=== PATIENT | female | born 1925 | race Two or more races ===

== ENCOUNTER 2017-01-31 16:35 | Inpatient (IN) | payer OTHER ==
[~2017-01-31] VITALS: Ht 160 cm; Wt 73.0 kg
[~2017-01-31 16:35] MED LIST: BENAZEPRIL HCL10 MG ORAL; CALCIUM500 M3 PO; DIPHENHYDRAMINE25 M1 ORAL; DITROPAN10 MG ORAL; GABAPENTIN300 MG/61 ORAL; LOPID600 MG ORAL; TRAMADOL HCL100 M2 ORAL; ZIAC1 EA ORAL
[2017-01-31 17:08] VITALS: BP 117/77
[2017-01-31 17:34] LABS: BASOPHILS % (AUTO) 0.8 % (0.0-2.0); EOSINOPHILS % (AUTO) 2.2 % (0.0-3.0); LYMPHOCYTES % (AUTO) 17.3 % (20.0-45.0); MEAN CORPUSCULAR HEMOGLOBIN 26.2 PG (27.0-31.0); MEAN CORPUSCULAR VOLUME 79 FL (80-99); MEAN PLATELET VOLUME 7.2 FL (6.5-10.1); MONOCYTES % (AUTO) 6.4 % (1.0-10.0); NEUTROPHILS % (AUTO) 73.3 % (45.0-75.0); PLATELET COUNT 228 K/UL (150-450); RED BLOOD COUNT 4.43 M/UL (4.20-5.40); RED CELL DISTRIBUTION WIDTH 14.2 % (11.6-14.8); WHITE BLOOD COUNT 16.8 K/UL (4.8-10.8)
[2017-01-31 17:48] LABS: ALANINE AMINOTRANSFERASE 30 U/L (3-33); ALBUMIN/GLOBULIN RATIO 0.8 (1.0-2.7); ANION GAP 19 (5-15); ASPARTATE AMINO TRANSFERASE 15 U/L (5-40); CALCIUM 8.5 mg/dL (8.6-10.2); CARBON DIOXIDE 22 mEQ/L (20-30); CHLORIDE 95 mEQ/L (98-107); HEMOLYSIS 13; POTASSIUM 3.3 mEQ/L (3.4-4.9); SODIUM 136 mEQ/L (135-145); TOTAL PROTEIN 7.8 g/dL (6.6-8.7)
[2017-01-31 17:57] LABS: TROPONIN I < 0.30 ng/mL (<=0.30)
[2017-01-31 18:16] LABS: CKMB 1.5 ng/mL (< 3.8)
--- NOTE | 2017-01-31 18:36 | Emergency Room Report ---
History of Present Illness General Chief Complaint: Upper Respiratory Illness Source: Patient Present Illness HPI 89-year-old female presents ED complaining of cough and congestion times one week. Notes cough with productive phlegm. Feels congested. Notes occasional shortness of breath. Denies chest pain. Denies fevers or chills. Denies sick contacts or recent travel. No other aggravating relieving factors. Denies any other associated symptoms Allergies: Coded Allergies: AZITHROMYCIN (Verified Adverse Reaction, 04/28/13) N#75. 2ND DAY OF ROCEPHIN AND AZITHROMYCIN (04/21/13). PATIENT DEVELOPED HIVES AFTER ROCEPHIN AND AZITHROMYCIN. CEFTRIAXONE SODIUM (Verified Adverse Reaction, 04/28/13) N#75: 2ND DAY OF ROCEPHIN AND AZITHROMYHCIN (04/21/13). DEVELOPED HIVES AFTER ROCEPHIN AND AZITHROMYCIN. Patient History Past Medical History: HTN Past Surgical History: none Pertinent Family History: none Social History: Denies: alcohol use, drug use, smoking Now: No Immunizations: UTD Reviewed Nursing Documentation: PMH: Agreed, PSxH: Agreed Nursing Documentation-PMH Hx Cardiac Problems: Yes Hx Hypertension: Yes Hx Cancer: No Hx Gastrointestinal Problems: No Hx Neurological Problems: No Review of Systems All Other Systems: negative except mentioned in HPI Physical Exam Vital Signs Date Time Temp Pulse Resp B/P Pulse Ox O2 Delivery O2 Flow Rate FiO2 01/31/17 16:38 99.1 91 20 117/77 93 Room Air Sp02 EP Interpretation: reviewed, normal General Appearance: no apparent distress, alert, GCS 15, non-toxic Head: normocephalic, atraumatic Eyes: bilateral eye PERRL, bilateral eye normal inspection ENT: hearing grossly normal, normal pharynx, no angioedema, normal voice Neck: full range of motion, supple/symm/no masses Respiratory: chest non-tender, normal breath sounds, crackles, speaking full sentences Cardiovascular #1: regular rate, rhythm, no edema Cardiovascular #2: 2+ carotid (R), 2+ carotid (L), 2+ radial (R), 2+ radial (L) , 2+ dorsalis pedis (R), 2+ dorsalis pedis (L) Gastrointestinal: normal bowel sounds, non tender, soft, non-distended, no guarding, no rebound Rectal: deferred Genitourinary: normal inspection, no CVA tenderness Musculoskeletal: back normal, gait/station normal, normal range of motion, non- tender Neurologic: alert, oriented x3, responsive, motor strength/tone normal, sensory intact, speech normal Psychiatric: judgement/insight normal, memory normal, mood/affect normal, no suicidal/homicidal ideation Reflexes: 3+ bicep (R), 3+ bicep (L), 3+ tricep (R), 3+ tricep (L), 3+ knee (R) , 3+ knee (L) Skin: normal color, no rash, warm/dry, well hydrated Lymphatic: no adenopathy Medical Decision Making Diagnostic Impression: Primary Impression: Pneumonia ER Course Hospital Course 89-year-old M presenting to ED with respiratory distress, cough and crackles Differential diagnoses include: Pneumonia, CHF exacerbation, pneumothorax, fluid overload Clinical course Patient placed on stretcher. On shell maker lockstitch. After initial history and physical, I ordered labs, IV fluids, EKG, chest x-ray, blood cultures, UA. Labs -leukocytosis noted, hemoglobin/hematocrit stable, electrolytes okay, lactate okay troponins negative CXR - atelectasis, effusion. ? infiltrate EKG - NSR, no acute ischemic changes interpreted by me given abx Case discussed with Dr. Boykin and he agreed to the patient to his service for further care and support I feel this is a highly complex case requiring extensive working including EKG/ Rhythm strip, Xray/CT/US, Blood/urine lab work, repeat exams while in ED, and administration of strong opiates/narcotics for pain control, admission to hospital or close patient follow up. Diagnosis - pneumonia Patient admitted to floor in serious condition Labs Test 01/31/17 17:27 White Blood Count 16.8 K/UL (4.8-10.8) Red Blood Count 4.43 M/UL (4.20-5.40) Hemoglobin 11.6 G/DL (12.0-16.0) Hematocrit 35.1 % (37.0-47.0) Mean Corpuscular Volume 79 FL (80-99) Mean Corpuscular Hemoglobin 26.2 PG (27.0-31.0) Mean Corpuscular Hemoglobin Concent 33.0 G/DL (32.0-36.0) Red Cell Distribution Width 14.2 % (11.6-14.8) Platelet Count 228 K/UL (150-450) Mean Platelet Volume 7.2 FL (6.5-10.1) Neutrophils (%) (Auto) 73.3 % (45.0-75.0) Lymphocytes (%) (Auto) 17.3 % (20.0-45.0) Monocytes (%) (Auto) 6.4 % (1.0-10.0) Eosinophils (%) (Auto) 2.2 % (0.0-3.0) Basophils (%) (Auto) 0.8 % (0.0-2.0) Sodium Level 136 mEQ/L (135-145) Potassium Level 3.3 mEQ/L (3.4-4.9) Chloride Level 95 mEQ/L (98-107) Carbon Dioxide Level 22 mEQ/L (20-30) Anion Gap 19 (5-15) Blood Urea Nitrogen 23 mg/dL (7-23) Creatinine 1.0 mg/dL (0.5-0.9) Estimat Glomerular Filtration Rate mL/min (>60) Glucose Level 115 mg/dL (74-106) Lactic Acid Level 1.00 mmol/L (0.66-2.22) Calcium Level 8.5 mg/dL (8.6-10.2) Total Bilirubin 0.3 mg/dL (0.0-1.2) Aspartate Amino Transf (AST/SGOT) 15 U/L (5-40) Alanine Aminotransferase (ALT/SGPT) 30 U/L (3-33) Alkaline Phosphatase 106 U/L (35-104) Total Creatine Kinase 87 U/L (26-140) Creatine Kinase MB 1.5 ng/mL (< 3.8) Creatine Kinase MB Relative Index 1.7 Troponin I < 0.30 ng/mL (<=0.30) Pro-B-Type Natriuretic Peptide 103 pg/mL (0-450) Total Protein 7.8 g/dL (6.6-8.7) Albumin 3.5 g/dL (3.5-5.2) Globulin 4.3 g/dL Albumin/Globulin Ratio 0.8 (1.0-2.7) EKG Diagnostic Results Rate: normal Rhythm: NSR ST Segments: no acute changes ASA given to the pt in ED: No Rhythm Strip Diag. Results EP Interpretation: yes Rhythm: NSR, no PVC's, no ectopy Chest X-Ray Diagnostic Results Chest X-Ray Ordered: Yes # of Views/Limited/Complete: 1 View Interpretation: no pneumothorax, no acute cardiopulmonary disease, other - atelectasis, effusion noted Indication: Other - cough Impression: Other - pneumonia Date Electronically Signed: Jan 31, 2017 Time Electronically Signed: 18:33 Interpreting ER Physician: Javad Butler MD Last Vital Signs Date Time Temp Pulse Resp B/P Pulse Ox O2 Delivery O2 Flow Rate FiO2 01/31/17 17:08 91 20 Room Air 01/31/17 17:08 99.1 117/77 93 Status: improved Disposition: ADMITTED INPATIENT Condition: Serious Referrals: NON PHYSICIAN (PCP) JAVAD BUTLER M.D. Jan 31, 2017 18:36
[2017-01-31 19:13] VITALS: BP 108/67
[2017-01-31] MEDS ORDERED: DuoNeb 0.5-3(2.5)mg/3ml neb HHN PRN (20:15)
[2017-01-31] MEDS ORDERED: Nitroglycerin Subl 0.4mg tab (Bottle Of 25) SL PRN (20:15)
[2017-01-31] MEDS ORDERED: Miralax 17gm pkt ORAL PRN (20:15)
[2017-01-31] MEDS ORDERED: Mylanta II UD 30ml ORAL PRN (20:15)
[2017-01-31] MEDS ORDERED: Promethazine/Codeine 5ml UD ORAL PRN (20:15)
[2017-01-31 20:47] LABS: APPEARANCE,URINE CLOUDY; KETONES,URINE NEGATIVE (NEGATIVE); LEUKOCYTE ESTERASE ,URINE 3+ (NEGATIVE); NITRITE,URINE POSITIVE (NEGATIVE); PH,URINE 6 (4.5-8.0); PROTEIN,URINE 2+ (NEGATIVE); UROBILINOGEN,URINE NORMAL MG/DL (0.0-1.0)
[2017-01-31 21:16] LABS: RBC,URINE 30-40 /HPF (0 - 2); WBC,URINE TNTC /HPF (0 - 2)
[2017-01-31 21:17] LABS: BACTERIA,URINE MANY /HPF; SQUAMOUS EPITHELIAL CELL,UR FEW /LPF (NONE/OCC)
[2017-01-31] MEDS ORDERED: Aztreonam Inj 1 GM in NS 55 ML IVPB ONE (23:00)
[2017-01-31] MEDS: Heparin 5000 units/ml inj SUBQ SCH (23:30)
[2017-02-01] MEDS ORDERED: Vancomycin 1250mg/D5W 275ml IVPB ONE ×2
[2017-02-01] MEDS ORDERED: Vancomycin 1gm inj IVPB ONE (00:19)
[2017-02-01 04:49] VITALS: BP 124/71
[2017-02-01] MEDS: Aztreonam 0.5gm/D5W 55ml IVPB SCH ×6 (06:28→21:35)
[2017-02-01 07:10] LABS: ANION GAP 16 (5-15); BASOPHILS % (AUTO) 0.7 % (0.0-2.0); CALCIUM 8.1 mg/dL (8.6-10.2); CARBON DIOXIDE 24 mEQ/L (20-30); CHLORIDE 97 mEQ/L (98-107); CREATININE 0.9 mg/dL (0.5-0.9); EOSINOPHILS % (AUTO) 2.3 % (0.0-3.0); HEMOLYSIS 0; LYMPHOCYTES % (AUTO) 20.7 % (20.0-45.0); MEAN CORPUSCULAR HEMOGLOBIN 26.2 PG (27.0-31.0); MEAN CORPUSCULAR HGB CONC 32.2 G/DL (32.0-36.0); MEAN CORPUSCULAR VOLUME 81 FL (80-99); MEAN PLATELET VOLUME 7.3 FL (6.5-10.1); MONOCYTES % (AUTO) 7.8 % (1.0-10.0); NEUTROPHILS % (AUTO) 68.4 % (45.0-75.0); PHOSPHORUS 3.5 mg/dL (2.5-4.8); PLATELET COUNT 212 K/UL (150-450); POTASSIUM 3.3 mEQ/L (3.4-4.9); RED BLOOD COUNT 3.92 M/UL (4.20-5.40); RED CELL DISTRIBUTION WIDTH 14.4 % (11.6-14.8); SODIUM 137 mEQ/L (135-145); WHITE BLOOD COUNT 13.3 K/UL (4.8-10.8)
[2017-02-01 08:15] VITALS: BP 111/69
--- NOTE | 2017-02-01 08:16 | Diagnostic Imaging Report ---
Indications: Right upper chest pain Technique: Portable AP chest Findings: Comparison: None Cardiac silhouette remains upper limits of normal in size. Pulmonary vasculature remains within normal limits. Inspiratory effort remains suboptimal. Mild crowding of bronchovascular markings in the lung bases persists. Lungs and pleura remain otherwise clear. Mild calcification and elongation of the aortic arch is unchanged. Bilateral glenohumeral joint space narrowing and marginal osteophyte formation have progressed. IMPRESSION: No evidence of acute disease, unchanged Progression of bilateral glenohumeral degenerative arthropathy Other stable chronic changes as described
[2017-02-01] MEDS: Heparin 5000 units/ml inj SUBQ SCH ×2 (08:47→21:20)
--- NOTE | 2017-02-01 10:21 | History and Physical ---
History of Present Illness General Date patient seen: Feb 01, 2017 Time patient seen: 09:00 Reason for Hospitalization: Upper Respiratory Illness Present Illness Allergies: Coded Allergies: AZITHROMYCIN (Verified Adverse Reaction, 04/28/13) N#[id number]. 2ND DAY OF ROCEPHIN AND AZITHROMYCIN (04/21/13). PATIENT DEVELOPED HIVES AFTER ROCEPHIN AND AZITHROMYCIN. CEFTRIAXONE SODIUM (Verified Adverse Reaction, 04/28/13) N#[id number]: 2ND DAY OF ROCEPHIN AND AZITHROMYHCIN (04/21/13). DEVELOPED HIVES AFTER ROCEPHIN AND AZITHROMYCIN. Medication History Scheduled Benazepril Hcl* (Benazepril Hcl*), 12.5 MG ORAL BID, (Reported) Calcium Carbonate (Calcium), 500 MG PO BID, (Reported) Gabapentin (Gabapentin), 300 MG ORAL BID, (Reported) Gemfibrozil* (Lopid*), 600 MG ORAL TWICE A DAY, (Reported) Oxybutynin Chloride (Oxybutynin Chloride), 10 MG ORAL DAILY, (Reported) Scheduled PRN Diphenhydramine Hcl* (Diphenhydramine Hcl*), 50 MG ORAL TID PRN for Itching, ( Reported) Tramadol Hcl (Tramadol Hcl), 50 MG ORAL BID PRN for For Pain, (Reported) Miscellaneous Medications Hctz/Bisoprolol (Ziac 5-6.25 mg Tablet), 1 EA ORAL, (Reported) Patient History Healthcare decision maker Resuscitation status Advanced Directive on File No Physical Exam Last 24 Hour Vital Signs Date Time Temp Pulse Resp B/P Pulse Ox O2 Delivery O2 Flow Rate FiO2 02/01/17 08:15 97.1 83 15 111/69 98 Room Air 02/01/17 04:49 97.7 64 16 124/71 95 Room Air 01/31/17 20:54 99.1 78 20 105/60 99 Room Air 01/31/17 19:13 79 20 108/67 99 Room Air 01/31/17 17:08 91 20 Room Air 01/31/17 17:08 99.1 20 117/77 93 Room Air 01/31/17 16:38 99.1 91 20 117/77 93 Room Air Intake and Output 01/31/17 02/01/17 19:00 07:00 Intake Total 500 ml 150 ml Balance 500 ml 150 ml Intake IV Total 500 ml 150 ml # Voids 3 Laboratory Tests Test 01/31/17 17:27 01/31/17 20:12 02/01/17 05:30 White Blood Count 16.8 K/UL (4.8-10.8) H 13.3 K/UL (4.8-10.8) H Red Blood Count 4.43 M/UL (4.20-5.40) 3.92 M/UL (4.20-5.40) L Hemoglobin 11.6 G/DL (12.0-16.0) L 10.2 G/DL (12.0-16.0) L Hematocrit 35.1 % (37.0-47.0) L 31.8 % (37.0-47.0) L Mean Corpuscular Volume 79 FL (80-99) L 81 FL (80-99) Mean Corpuscular Hemoglobin 26.2 PG (27.0-31.0) L 26.2 PG (27.0-31.0) L Mean Corpuscular Hemoglobin Concent 33.0 G/DL (32.0-36.0) 32.2 G/DL (32.0-36.0) Red Cell Distribution Width 14.2 % (11.6-14.8) 14.4 % (11.6-14.8) Platelet Count 228 K/UL (150-450) 212 K/UL (150-450) Mean Platelet Volume 7.2 FL (6.5-10.1) 7.3 FL (6.5-10.1) Neutrophils (%) (Auto) 73.3 % (45.0-75.0) 68.4 % (45.0-75.0) Lymphocytes (%) (Auto) 17.3 % (20.0-45.0) L 20.7 % (20.0-45.0) Monocytes (%) (Auto) 6.4 % (1.0-10.0) 7.8 % (1.0-10.0) Eosinophils (%) (Auto) 2.2 % (0.0-3.0) 2.3 % (0.0-3.0) Basophils (%) (Auto) 0.8 % (0.0-2.0) 0.7 % (0.0-2.0) Sodium Level 136 mEQ/L (135-145) 137 mEQ/L (135-145) Potassium Level 3.3 mEQ/L (3.4-4.9) L 3.3 mEQ/L (3.4-4.9) L Chloride Level 95 mEQ/L (98-107) L 97 mEQ/L (98-107) L Carbon Dioxide Level 22 mEQ/L (20-30) 24 mEQ/L (20-30) Anion Gap 19 (5-15) H 16 (5-15) H Blood Urea Nitrogen 23 mg/dL (7-23) 22 mg/dL (7-23) Creatinine 1.0 mg/dL (0.5-0.9) H 0.9 mg/dL (0.5-0.9) Estimat Glomerular Filtration Rate mL/min (>60) mL/min (>60) Glucose Level 115 mg/dL (74-106) H 93 mg/dL (74-106) Lactic Acid Level 1.00 mmol/L (0.66-2.22) Calcium Level 8.5 mg/dL (8.6-10.2) L 8.1 mg/dL (8.6-10.2) L Total Bilirubin 0.3 mg/dL (0.0-1.2) Aspartate Amino Transf (AST/SGOT) 15 U/L (5-40) Alanine Aminotransferase (ALT/SGPT) 30 U/L (3-33) Alkaline Phosphatase 106 U/L (35-104) H Total Creatine Kinase 87 U/L (26-140) Creatine Kinase MB 1.5 ng/mL (< 3.8) Creatine Kinase MB Relative Index 1.7 Troponin I < 0.30 ng/mL (<=0.30) Pro-B-Type Natriuretic Peptide 103 pg/mL (0-450) Total Protein 7.8 g/dL (6.6-8.7) Albumin 3.5 g/dL (3.5-5.2) 3.1 g/dL (3.5-5.2) L Globulin 4.3 g/dL Albumin/Globulin Ratio 0.8 (1.0-2.7) L Urine Color Pale yellow Urine Appearance Cloudy Urine pH 6 (4.5-8.0) Urine Specific [place] 1.015 (1.005-1.035) Urine Protein 2+ (NEGATIVE) H Urine Glucose (UA) Negative (NEGATIVE) Urine Ketones Negative (NEGATIVE) Urine Occult Blood 2+ (NEGATIVE) H Urine Nitrite Positive (NEGATIVE) H Urine Bilirubin Negative (NEGATIVE) Urine Urobilinogen Normal MG/DL (0.0-1.0) Urine Leukocyte Esterase 3+ (NEGATIVE) H Urine RBC 30-40 /HPF (0 - 2) H Urine WBC Tntc /HPF (0 - 2) H Urine Squamous Epithelial Cells Few /LPF (NONE/OCC) Urine Bacteria Many /HPF (NONE) H Urine Legionella Antigen Pending Phosphorus Level 3.5 mg/dL (2.5-4.8) Height (Feet): 5 Height (Inches): 3.00 Weight (Pounds): 161 Medications Current Medications Medications (Trade) Dose Ordered Sig/Jess Route PRN Reason Start Time Stop Time Status Last Admin Dose Admin Acetaminophen (Tylenol) 650 mg Q4H PRN ORAL fever 01/31/17 20:15 03/02/17 20:14 Al Hydroxide/Mg Hydroxide (Mylanta II) 30 ml Q6H PRN ORAL dyspepsia 01/31/17 20:15 03/02/17 20:14 Albuterol/ Ipratropium (DuoNeb 0.5-3(2.5)mg/3ml) 3 ml EVERY 4 HOURS PRN HHN Shortness of Breath 01/31/17 20:15 02/05/17 20:14 Aztreonam 0.5 gm/ Dextrose 55 ml @ 110 mls/hr Q8HR IVPB 02/01/17 06:00 02/08/17 05:59 02/01/17 06:28 Gabapentin (Neurontin) 300 mg Q12HR ORAL 01/31/17 23:00 03/02/17 22:59 02/01/17 08:45 Heparin Sodium (Porcine) (Heparin 5000 units/ml) 5,000 units EVERY 12 HOURS SUBQ 01/31/17 21:00 03/02/17 20:59 02/01/17 08:47 Nitroglycerin (Ntg) 0.4 mg Q5M PRN SL Prn Chest Pain 01/31/17 20:15 03/02/17 20:14 Ondansetron HCl (Zofran) 4 mg Q6H PRN IVP Nausea & Vomiting 01/31/17 20:15 03/02/17 20:14 Polyethylene Glycol (Miralax) 17 gm DAILYPRN PRN ORAL Constipation 01/31/17 20:15 03/02/17 20:14 Promethazine HCl/ Codeine (Phenergan with Codeine) 5 ml Q4H PRN ORAL For Cough 01/31/17 20:15 03/02/17 20:14 Temazepam (Restoril) 15 mg HSPRN PRN ORAL Insomnia 01/31/17 20:15 02/07/17 20:14 Vancomycin HCl 1 ea 1 ea DAILY PRN MISC Per rx protocol 01/31/17 20:15 03/02/17 20:14 Vancomycin HCl/ Dextrose (Vancomycin/D5W) 275 ml @ 183.708 mls/hr Q24H IVPB 02/02/17 00:00 02/07/17 00:00 Cely Paz NP ([place]) Feb 01, 2017 10:21
[2017-02-01 11:27] VITALS: BP 104/57
[2017-02-01 16:21] VITALS: BP 106/78
--- NOTE | 2017-02-01 16:46 | History & Physical ---
History and Physical History & Physicial Dictated for Int Med-Dr Boykin no. [id number]. MADHURI RANDLE Feb 01, 2017 16:46
--- NOTE | 2017-02-01 16:55 | Consultation ---
History of Present Illness General Date patient seen: Feb 01, 2017 Time patient seen: 09:00 Chief Complaint: Upper Respiratory Illness Referring physician: dr Boykin Reason for Consultation: trevor vences, possible PNA Present Illness HPI 89-year-old female with histroy of HTN presented to ED complaining of cough and congestion for one week. Noted productive cough with yellow color phlegm. No hemoptysis No wheezing [place] congested. Noted occasional shortness of breath. Denied chest pain. Denied fevers or chills. Denied sick contacts or recent travel. No history of asthma/COPD Non smoker CXR revealed atelectasis with probable infiltrate leukocytosis-16.8 lactic acid WNL, troponin negative ECG with NSR , no acute ischemic changes patient was given first dose of antibiotic in ED and admitted for further management Allergies: Coded Allergies: AZITHROMYCIN (Verified Adverse Reaction, 04/28/13) N#[id number]. 2ND DAY OF ROCEPHIN AND AZITHROMYCIN (04/21/13). PATIENT DEVELOPED HIVES AFTER ROCEPHIN AND AZITHROMYCIN. CEFTRIAXONE SODIUM (Verified Adverse Reaction, 04/28/13) N#[id number]: 2ND DAY OF ROCEPHIN AND AZITHROMYHCIN (04/21/13). DEVELOPED HIVES AFTER ROCEPHIN AND AZITHROMYCIN. Medication History Scheduled Benazepril Hcl* (Benazepril Hcl*), 12.5 MG ORAL BID, (Reported) Calcium Carbonate (Calcium), 500 MG PO BID, (Reported) Gabapentin (Gabapentin), 300 MG ORAL BID, (Reported) Gemfibrozil* (Lopid*), 600 MG ORAL TWICE A DAY, (Reported) Oxybutynin Chloride (Oxybutynin Chloride), 10 MG ORAL DAILY, (Reported) Scheduled PRN Diphenhydramine Hcl* (Diphenhydramine Hcl*), 50 MG ORAL TID PRN for Itching, ( Reported) Tramadol Hcl (Tramadol Hcl), 50 MG ORAL BID PRN for For Pain, (Reported) Miscellaneous Medications Hctz/Bisoprolol (Ziac 5-6.25 mg Tablet), 1 EA ORAL, (Reported) Patient History History Provided By: Patient Healthcare decision maker Resuscitation status Advanced Directive on File No Past Medical/Surgical History Past Medical/Surgical History: (1) Hypertension Review of Systems Constitutional: Reports: weakness Eye: Reports: no symptoms ENT: Reports: other - nasal congestion Respiratory: Reports: see HPI Cardiovascular: Reports: no symptoms, other - hx of hTN Gastrointestinal: Reports: constipation Genitourinary: Reports: frequency - at night Musculoskeletal: Reports: muscle stiffness Skin: Reports: dryness Psychiatric: Reports: no symptoms Neurological: Reports: no symptoms Endocrine: Reports: no symptoms Hematologic/Lymphatic: Reports: no symptoms Physical Exam General Appearance: no apparent distress, alert, other - A/A/O x 3 Nepalese speaking elderly female in NAD Lines, tubes and drains: peripheral HEENT: normocephalic, atraumatic, anicteric, mucous membranes moist, supple, no JVD Neck: non-tender, normal alignment, supple Respiratory/Chest: chest wall non-tender, no respiratory distress, no accessory muscle use, other - coarse breath sounds wuth scattered rhonchi Cardiovascular/Chest: normal peripheral pulses, normal rate, regular rhythm, no JVD Abdomen: normal bowel sounds, non tender, soft Extremities: non-tender, no calf tenderness, normal capillary refill Skin Exam: normal pigmentation, warm/dry Neurologic: no motor/sensory deficits, alert, responsive Musculoskeletal: atrophy - BLE Last 24 Hour Vital Signs Date Time Temp Pulse Resp B/P Pulse Ox O2 Delivery O2 Flow Rate FiO2 02/01/17 16:21 98.1 81 15 106/78 92 Room Air 02/01/17 11:27 98.1 65 15 104/57 96 Room Air 02/01/17 08:15 97.1 83 15 111/69 98 Room Air 02/01/17 04:49 97.7 64 16 124/71 95 Room Air 01/31/17 20:54 99.1 78 20 105/60 99 Room Air 01/31/17 19:13 79 20 108/67 99 Room Air 01/31/17 17:08 91 20 Room Air 01/31/17 17:08 99.1 20 117/77 93 Room Air Intake and Output 01/31/17 02/01/17 19:00 07:00 Intake Total 500 ml 150 ml Balance 500 ml 150 ml Intake IV Total 500 ml 150 ml # Voids 3 Laboratory Tests Test 01/31/17 17:27 01/31/17 20:12 02/01/17 05:30 White Blood Count 16.8 K/UL (4.8-10.8) H 13.3 K/UL (4.8-10.8) H Red Blood Count 4.43 M/UL (4.20-5.40) 3.92 M/UL (4.20-5.40) L Hemoglobin 11.6 G/DL (12.0-16.0) L 10.2 G/DL (12.0-16.0) L Hematocrit 35.1 % (37.0-47.0) L 31.8 % (37.0-47.0) L Mean Corpuscular Volume 79 FL (80-99) L 81 FL (80-99) Mean Corpuscular Hemoglobin 26.2 PG (27.0-31.0) L 26.2 PG (27.0-31.0) L Mean Corpuscular Hemoglobin Concent 33.0 G/DL (32.0-36.0) 32.2 G/DL (32.0-36.0) Red Cell Distribution Width 14.2 % (11.6-14.8) 14.4 % (11.6-14.8) Platelet Count 228 K/UL (150-450) 212 K/UL (150-450) Mean Platelet Volume 7.2 FL (6.5-10.1) 7.3 FL (6.5-10.1) Neutrophils (%) (Auto) 73.3 % (45.0-75.0) 68.4 % (45.0-75.0) Lymphocytes (%) (Auto) 17.3 % (20.0-45.0) L 20.7 % (20.0-45.0) Monocytes (%) (Auto) 6.4 % (1.0-10.0) 7.8 % (1.0-10.0) Eosinophils (%) (Auto) 2.2 % (0.0-3.0) 2.3 % (0.0-3.0) Basophils (%) (Auto) 0.8 % (0.0-2.0) 0.7 % (0.0-2.0) Sodium Level 136 mEQ/L (135-145) 137 mEQ/L (135-145) Potassium Level 3.3 mEQ/L (3.4-4.9) L 3.3 mEQ/L (3.4-4.9) L Chloride Level 95 mEQ/L (98-107) L 97 mEQ/L (98-107) L Carbon Dioxide Level 22 mEQ/L (20-30) 24 mEQ/L (20-30) Anion Gap 19 (5-15) H 16 (5-15) H Blood Urea Nitrogen 23 mg/dL (7-23) 22 mg/dL (7-23) Creatinine 1.0 mg/dL (0.5-0.9) H 0.9 mg/dL (0.5-0.9) Estimat Glomerular Filtration Rate mL/min (>60) mL/min (>60) Glucose Level 115 mg/dL (74-106) H 93 mg/dL (74-106) Lactic Acid Level 1.00 mmol/L (0.66-2.22) Calcium Level 8.5 mg/dL (8.6-10.2) L 8.1 mg/dL (8.6-10.2) L Total Bilirubin 0.3 mg/dL (0.0-1.2) Aspartate Amino Transf (AST/SGOT) 15 U/L (5-40) Alanine Aminotransferase (ALT/SGPT) 30 U/L (3-33) Alkaline Phosphatase 106 U/L (35-104) H Total Creatine Kinase 87 U/L (26-140) Creatine Kinase MB 1.5 ng/mL (< 3.8) Creatine Kinase MB Relative Index 1.7 Troponin I < 0.30 ng/mL (<=0.30) Pro-B-Type Natriuretic Peptide 103 pg/mL (0-450) Total Protein 7.8 g/dL (6.6-8.7) Albumin 3.5 g/dL (3.5-5.2) 3.1 g/dL (3.5-5.2) L Globulin 4.3 g/dL Albumin/Globulin Ratio 0.8 (1.0-2.7) L Urine Color Pale yellow Urine Appearance Cloudy Urine pH 6 (4.5-8.0) Urine Specific [place] 1.015 (1.005-1.035) Urine Protein 2+ (NEGATIVE) H Urine Glucose (UA) Negative (NEGATIVE) Urine Ketones Negative (NEGATIVE) Urine Occult Blood 2+ (NEGATIVE) H Urine Nitrite Positive (NEGATIVE) H Urine Bilirubin Negative (NEGATIVE) Urine Urobilinogen Normal MG/DL (0.0-1.0) Urine Leukocyte Esterase 3+ (NEGATIVE) H Urine RBC 30-40 /HPF (0 - 2) H Urine WBC Tntc /HPF (0 - 2) H Urine Squamous Epithelial Cells Few /LPF (NONE/OCC) Urine Bacteria Many /HPF (NONE) H Urine Legionella Antigen Pending Phosphorus Level 3.5 mg/dL (2.5-4.8) Height (Feet): 5 Height (Inches): 3.00 Weight (Pounds): 161 Medications Current Medications Medications (Trade) Dose Ordered Sig/Jess Route PRN Reason Start Time Stop Time Status Last Admin Dose Admin Acetaminophen (Tylenol) 650 mg Q4H PRN ORAL fever 01/31/17 20:15 03/02/17 20:14 Al Hydroxide/Mg Hydroxide (Mylanta II) 30 ml Q6H PRN ORAL dyspepsia 01/31/17 20:15 03/02/17 20:14 Albuterol/ Ipratropium (DuoNeb 0.5-3(2.5)mg/3ml) 3 ml EVERY 4 HOURS PRN HHN Shortness of Breath 01/31/17 20:15 02/05/17 20:14 Aztreonam 0.5 gm/ Dextrose 55 ml @ 110 mls/hr Q8HR IVPB 02/01/17 06:00 02/08/17 05:59 02/01/17 14:35 Gabapentin (Neurontin) 300 mg Q12HR ORAL 01/31/17 23:00 03/02/17 22:59 02/01/17 08:45 Heparin Sodium (Porcine) (Heparin 5000 units/ml) 5,000 units EVERY 12 HOURS SUBQ 01/31/17 21:00 03/02/17 20:59 02/01/17 08:47 Nitroglycerin (Ntg) 0.4 mg Q5M PRN SL Prn Chest Pain 01/31/17 20:15 03/02/17 20:14 Ondansetron HCl (Zofran) 4 mg Q6H PRN IVP Nausea & Vomiting 01/31/17 20:15 03/02/17 20:14 Polyethylene Glycol (Miralax) 17 gm DAILYPRN PRN ORAL Constipation 01/31/17 20:15 03/02/17 20:14 Promethazine HCl/ Codeine (Phenergan with Codeine) 5 ml Q4H PRN ORAL For Cough 01/31/17 20:15 03/02/17 20:14 Temazepam (Restoril) 15 mg HSPRN PRN ORAL Insomnia 01/31/17 20:15 02/07/17 20:14 Vancomycin HCl 1 ea 1 ea DAILY PRN MISC Per rx protocol 01/31/17 20:15 03/02/17 20:14 Vancomycin HCl/ Dextrose (Vancomycin/D5W) 275 ml @ 183.708 mls/hr Q24H IVPB 02/02/17 00:00 02/07/17 00:00 Assessment/Plan Assessment/Plan ASSESSMENT leukocytosis purulent bronchitis probably CAP hx of HTN PLAN OF CARE MS floor O2 HHN prn keep sat above 92% empiric abx sputum cx if able antitussive prn fup with CXR BP management, currently normotensive DVT prophylaxis bowel regimen Jackson (hCau)Cely NP Feb 01, 2017 16:54
[2017-02-01 20:00] VITALS: BP 145/62
--- NOTE | 2017-02-01 21:15 | History and Physical Report ---
DATE OF ADMISSION: 01/31/2017 CHIEF COMPLAINT: The patient is a 89-year-old female presents with complaint of cough. HISTORY OF PRESENT ILLNESS: Began one week previously on Saturday was here . The patient began to experience cough. Cough is productive of a yellowish phlegm. The patient denies fevers or chills. The patient presented to [place] emergency room. The patient was admitted for cough to rule out pneumonia. REVIEW OF SYSTEMS: Constitutional: The patient denies weight loss or weight gain. The patient denies fever or chills. Heent: The patient denies ear or throat pain. Cardiovascular: The patient denies palpitations or chest pain. Chest: The patient complains of cough as above. The patient denies wheezes. Abdomen: The patient denies nausea, vomiting, diarrhea, or constipation. Genitourinary: The patient denies dysuria or increased frequency of urination. Neuromuscular: The patient denies seizures or generalized weakness. PAST MEDICAL HISTORY: Significant for: 1. Hypertension. 2. Hypercholesterolemia. PAST SURGICAL HISTORY: Significant for: 1. Appendectomy. 2. Total abdominal hysterectomy. CURRENT MEDICATIONS: 1. Benazepril 10 mg one tablet p.o. twice daily. 2. Gabapentin 300 mg one tablet p.o. twice daily. 3. Gemfibrozil 600 mg one tablet p.o. twice daily. 4. Ziac one tablet p.o. daily item 5. Ditropan 10 mg one tablet p.o. daily. 6. Tramadol 50 mg one tablet p.o. twice daily. ALLERGIES: 1. Azithromycin. 2. Ceftriaxone. SOCIAL HISTORY: The patient is single. The patient lives with her daughter. The patient denies tobacco or alcohol use. PHYSICAL EXAMINATION: VITAL SIGNS: Temperature 99.1, respirations 20, pulse 78, blood pressure 105/68. GENERAL: The patient is a well-developed and well-nourished female, in no apparent distress. HEENT: Pupils are equal and responsive to light and accommodation. Extraocular movements are intact. NECK: Supple. No lymphadenopathy. CHEST: Lungs are clear to auscultation bilaterally with few wheezes at bilateral bases. Otherwise, clear to auscultation bilaterally. CARDIOVASCULAR: Regular rhythm and rate. S1 and S2. No murmurs, rubs, or gallops. ABDOMEN: Soft, nontender, and nondistended. Positive bowel sounds. No evidence of hepatosplenomegaly. Currently, no rebound or guarding noted. EXTREMITIES: Negative for clubbing, cyanosis, or edema. RECTAL/GENITAL: Refused. NEUROLOGIC: Cranial nerves II to XII are grossly intact without focal deficits. Motor strength is 5/5 bilaterally. Deep tendon reflexes 2+ plantar. LABORATORY STUDIES: WBC 16.8, hemoglobin 11.6, hematocrit 35.1, and platelets 228,000. Sodium 136, potassium 3.3, chloride 95, CO2 22, BUN 23, creatinine 1.0, glucose 115. Chest x-ray is reported as no acute disease. ASSESSMENT: This is a 89-year-old female. 1. Cough. 2. Bronchitis. 3. Leukocytosis. 4. Hypertension. 5. Hypercholesterolemia. TREATMENT: 1. Cough/bronchitis/leukocytosis, the patient has been started empirically on intravenous vancomycin and aztreonam. A Pulmonary consultation obtained with Dr. Howard. We will follow recommendation of Pulmonary. 2. Hypertension. Continue benazepril and Ziac as above. 3. Hypercholesterolemia. Continue Lopid as above. Suleman Garcia M.D. DR: Keila JOB#: [id number] CC:
--- NOTE | 2017-02-01 22:42 | Consultation ---
Consult Note Consult Note ID dic # [id number] BERLIN AVILA M.D. Feb 01, 2017 22:42
[2017-02-02] VITALS: BP 120/51
[2017-02-02] MEDS ORDERED: Vancomycin 750mg/D5W 275ml IVPB SCH ×2
--- NOTE | 2017-02-02 03:15 | Consultation ---
DATE OF CONSULTATION: INFECTIOUS DISEASES CONSULTATION CONSULTING PHYSICIAN: Braulio Soriano M.D. REFERRING PHYSICIAN: Suleman Garcia M.D. and Sheldon Howard M.D. REASON FOR CONSULTATION: Evaluation of the patient for pneumonia and antibiotic management. HISTORY OF PRESENT ILLNESS: The patient is an 89-year-old female with multiple medical problems as listed below, who came to the hospital with cough, sputum production, and general weakness. The patient has been admitted with the impression of pneumonia. An Infectious Disease consultation has been requested for further evaluation of the patient and antibiotic management. PAST MEDICAL HISTORY: 1. Hypertension. 2. Hyperlipidemia. PAST SURGICAL HISTORY: 1. Appendectomy. 2. . 3. Abdominal hysterectomy. MEDICATIONS: Vancomycin and aztreonam. ALLERGIES: Zithromax and Rocephin. SOCIAL HISTORY: Negative for tobacco smoking. FAMILY HISTORY: Noncontributory. REVIEW OF SYSTEMS: HEENT: No recent change in vision or hearing. Pulmonary: As mentioned above. Cardiovascular: As mentioned above. Gastrointestinal/Abdomen: No nausea and vomiting. Genitourinary: No dysuria. PHYSICAL EXAMINATION: VITAL SIGNS: Temperature 99.4 degrees, blood pressure 144/60, pulse 82, and respiratory rate 18. HEENT: Mild pale conjunctivae. Eyes, no icterus. NECK: No lymphadenopathy. CHEST: Coarse breathing sounds. HEART: S1 and S2. ABDOMEN: Soft, nontender, and obese. EXTREMITIES: No cyanosis. NEUROLOGIC: Awake and alert. LABORATORY AND DIAGNOSTIC DATA: White blood cell count , hemoglobin 10.2, and platelets 220,000. UA unremarkable except too numerous to count white blood cells. BUN 20, creatinine 0.9. 106. Chest x-ray, no evidence of acute disease. ASSESSMENT: The patient is an 89-year-old female, who came to the hospital with: 1. Probably community-acquired pneumonia. 2. Probably urinary tract infection. 3. Rule out bacteremia. 4. Leukocytosis. PLAN: 1. We will continue the patient on aztreonam, add Levaquin for atypical coverage, hold IV vancomycin. 2. Monitor CBC. 3. Monitor BMP. 4. Monitor cultures (blood, sputum, and urine). 5. Monitor chest x-ray. 6. Based on the patient's clinical course and laboratories, we will do further recommendations. Thank you, Dr. Howard and Dr. Garcia for allowing me to participate in the care of this patient. I will follow the patient with you during this hospitalization. Braulio Soriano M.D. DR: PATRICIA JOB#: [id number] CC:
[2017-02-02 04:00] VITALS: BP 131/57
[2017-02-02] MEDS: Aztreonam 0.5gm/D5W 55ml IVPB SCH ×6 (05:12→22:27)
[2017-02-02 06:37] LABS: BASOPHILS % (AUTO) 0.7 % (0.0-2.0); EOSINOPHILS % (AUTO) 3.2 % (0.0-3.0); LYMPHOCYTES % (AUTO) 22.2 % (20.0-45.0); MEAN CORPUSCULAR HEMOGLOBIN 27.2 PG (27.0-31.0); MEAN CORPUSCULAR HGB CONC 33.7 G/DL (32.0-36.0); MEAN CORPUSCULAR VOLUME 81 FL (80-99); MEAN PLATELET VOLUME 6.9 FL (6.5-10.1); MONOCYTES % (AUTO) 7.7 % (1.0-10.0); NEUTROPHILS % (AUTO) 66.2 % (45.0-75.0); PLATELET COUNT 209 K/UL (150-450); RED BLOOD COUNT 3.67 M/UL (4.20-5.40); RED CELL DISTRIBUTION WIDTH 13.9 % (11.6-14.8); WHITE BLOOD COUNT 10.7 K/UL (4.8-10.8)
[2017-02-02 06:52] LABS: ANION GAP 14 (5-15); CALCIUM 8.5 mg/dL (8.6-10.2); CARBON DIOXIDE 24 mEQ/L (20-30); CHLORIDE 101 mEQ/L (98-107); CREATININE 0.8 mg/dL (0.5-0.9); HEMOLYSIS 0; POTASSIUM 3.4 mEQ/L (3.4-4.9); SODIUM 139 mEQ/L (135-145)
[2017-02-02 08:00] VITALS: BP 97/60
[2017-02-02] MEDS: Heparin 5000 units/ml inj SUBQ SCH ×2 (08:40→20:49)
--- NOTE | 2017-02-02 09:46 | Diagnostic Imaging Report ---
Indication: Shortness of breath Technique: XRAY CHEST 1 V Comparison: 01/31/17 Findings: Cardiac silhouette is prominent. No new consolidations are identified. The osseous structures are stable. Impression: No acute cardiopulmonary disease.
[2017-02-02] MEDS ORDERED: D5W 275ml ONE (10:02)
[2017-02-02] MEDS ORDERED: NS 550ML IV ONE (10:02)
[2017-02-02] MEDS ORDERED: Tubing IV Secondary IV ONE (10:02)
--- NOTE | 2017-02-02 11:45 | Pulmonology Progress Note ---
Assessment/Plan Assessment/Plan ASSESSMENT leukocytosis purulent bronchitis probably CAP bronchospasm UTI hx of HTN PLAN OF CARE MS floor O2 HHN prn keep sat above 92% empiric abx sputum cx if able , urine cx ID follows antitussive prn fup CXR - no acute PNA add HHN ATC in addition to PRN and CPT to be done with HHN tid x48 hrs add steroids short term with fast tapering BP management, currently normotensive DVT prophylaxis bowel regimen case discussed and evaluated by supervising physician Subjective Allergies: Coded Allergies: AZITHROMYCIN (Verified Adverse Reaction, 04/28/13) N#75. 2ND DAY OF ROCEPHIN AND AZITHROMYCIN (04/21/13). PATIENT DEVELOPED HIVES AFTER ROCEPHIN AND AZITHROMYCIN. CEFTRIAXONE SODIUM (Verified Adverse Reaction, 04/28/13) N#75: 2ND DAY OF ROCEPHIN AND AZITHROMYHCIN (04/21/13). DEVELOPED HIVES AFTER ROCEPHIN AND AZITHROMYCIN. Subjective leukocytosis resolved, earlier low grade fever, now temp below normal congested, wheezing, some SOB on RA sat stable Objective Last 24 Hour Vital Signs Date Time Temp Pulse Resp B/P Pulse Ox O2 Delivery O2 Flow Rate FiO2 02/02/17 08:00 95.9 78 20 97/60 97 Room Air 02/02/17 04:00 99.1 70 20 131/57 90 Room Air 02/02/17 00:00 98.7 71 20 120/51 91 Room Air 02/01/17 20:00 99.5 20 145/62 92 Room Air 02/01/17 16:21 98.1 81 15 106/78 92 Room Air Intake and Output 02/01/17 02/02/17 19:00 07:00 Intake Total 1000 ml 205 ml Balance 1000 ml 205 ml Intake Oral 1000 ml IV Total 205 ml # Voids 3 1 # Bowel Movements 1 Objective General Appearance: no apparent distress, alert, other - A/A/O x 3 Bulgarian speaking elderly female in NAD Lines, tubes and drains: peripheral HEENT: normocephalic, atraumatic, anicteric, mucous membranes moist, supple, no JVD Neck: non-tender, normal alignment, supple Respiratory/Chest: chest wall non-tender, no respiratory distress, no accessory muscle use, coarse breath sounds with scattered rhonchi, expiratory wheezes in anterior jacobo bilaterally Cardiovascular/Chest: normal peripheral pulses, normal rate, regular rhythm, no JVD Abdomen: normal bowel sounds, non tender, soft Extremities: non-tender, no calf tenderness, normal capillary refill Skin Exam: normal pigmentation, warm/dry Neurologic: no motor/sensory deficits, alert, responsive Musculoskeletal: atrophy - BLE Laboratory Tests 02/02/17 05:20: White Blood Count 10.7, Red Blood Count 3.67L, Hemoglobin 10.0L, Hematocrit 29.6L, Mean Corpuscular Volume 81, Mean Corpuscular Hemoglobin 27.2, Mean Corpuscular Hemoglobin Concent 33.7, Red Cell Distribution Width 13.9, Platelet Count 209, Mean Platelet Volume 6.9, Neutrophils (%) (Auto) 66.2, Lymphocytes (% ) (Auto) 22.2, Monocytes (%) (Auto) 7.7, Eosinophils (%) (Auto) 3.2H, Basophils (%) (Auto) 0.7, Sodium Level 139, Potassium Level 3.4, Chloride Level 101, Carbon Dioxide Level 24, Anion Gap 14, Blood Urea Nitrogen 18, Creatinine 0.8, Estimat Glomerular Filtration Rate , Glucose Level 103, Calcium Level 8.5L Current Medications Medications (Trade) Dose Ordered Sig/Jess Route PRN Reason Start Time Stop Time Status Last Admin Dose Admin Acetaminophen (Tylenol) 650 mg Q4H PRN ORAL fever 01/31/17 20:15 03/02/17 20:14 Al Hydroxide/Mg Hydroxide (Mylanta II) 30 ml Q6H PRN ORAL dyspepsia 01/31/17 20:15 03/02/17 20:14 Albuterol/ Ipratropium (DuoNeb 0.5-3(2.5)mg/3ml) 3 ml EVERY 4 HOURS PRN HHN Shortness of Breath 01/31/17 20:15 02/05/17 20:14 Aztreonam 0.5 gm/ Dextrose 55 ml @ 110 mls/hr Q8HR IVPB 02/01/17 06:00 02/08/17 05:59 02/02/17 05:12 Gabapentin (Neurontin) 300 mg Q12HR ORAL 01/31/17 23:00 03/02/17 22:59 02/02/17 08:37 Heparin Sodium (Porcine) (Heparin 5000 units/ml) 5,000 units EVERY 12 HOURS SUBQ 01/31/17 21:00 03/02/17 20:59 02/02/17 08:40 Levofloxacin (Levaquin 750mg/ D5W) 150 ml @ 100 mls/hr Q48H IVPB 02/02/17 00:00 02/09/17 00:00 02/01/17 23:15 Nitroglycerin (Ntg) 0.4 mg Q5M PRN SL Prn Chest Pain 01/31/17 20:15 03/02/17 20:14 Ondansetron HCl (Zofran) 4 mg Q6H PRN IVP Nausea & Vomiting 01/31/17 20:15 03/02/17 20:14 Polyethylene Glycol (Miralax) 17 gm DAILYPRN PRN ORAL Constipation 01/31/17 20:15 03/02/17 20:14 Promethazine HCl/ Codeine (Phenergan with Codeine) 5 ml Q4H PRN ORAL For Cough 01/31/17 20:15 03/02/17 20:14 Temazepam 15 mg 15 mg HSPRN PRN ORAL Insomnia 01/31/17 20:15 02/07/17 20:14 [facility] ([facility])Cely NP Feb 02, 2017 11:45
[2017-02-02 12:00] VITALS: BP 116/69
--- NOTE | 2017-02-02 13:36 | Internal Med Progress Note ---
Subjective Date of Service: Feb 02, 2017 Physician Name Suleman Randle Attending Physician Jesse Boykin MD Current Medications Medications (Trade) Dose Ordered Sig/Jess Route PRN Reason Start Time Stop Time Status Last Admin Dose Admin Acetaminophen (Tylenol) 650 mg Q4H PRN ORAL fever 01/31/17 20:15 03/02/17 20:14 Al Hydroxide/Mg Hydroxide (Mylanta II) 30 ml Q6H PRN ORAL dyspepsia 01/31/17 20:15 03/02/17 20:14 Albuterol/ Ipratropium (DuoNeb 0.5-3(2.5)mg/3ml) 3 ml EVERY 4 HOURS PRN HHN Shortness of Breath 01/31/17 20:15 02/05/17 20:14 Albuterol/ Ipratropium (DuoNeb 0.5-3(2.5)mg/3ml) 3 ml TIDRT HHN 02/02/17 13:00 02/07/17 12:59 Aztreonam 0.5 gm/ Dextrose 55 ml @ 110 mls/hr Q8HR IVPB 02/01/17 06:00 02/08/17 05:59 02/02/17 05:12 Gabapentin (Neurontin) 300 mg Q12HR ORAL 01/31/17 23:00 03/02/17 22:59 02/02/17 08:37 Heparin Sodium (Porcine) (Heparin 5000 units/ml) 5,000 units EVERY 12 HOURS SUBQ 01/31/17 21:00 03/02/17 20:59 02/02/17 08:40 Levofloxacin (Levaquin 750mg/ D5W) 150 ml @ 100 mls/hr Q48H IVPB 02/02/17 00:00 02/09/17 00:00 02/01/17 23:15 Methylprednisolone Sodium Succinate (Solu-MEDROL) 40 mg EVERY 8 HOURS IVP 02/02/17 14:00 03/04/17 13:59 Nitroglycerin (Ntg) 0.4 mg Q5M PRN SL Prn Chest Pain 01/31/17 20:15 03/02/17 20:14 Ondansetron HCl (Zofran) 4 mg Q6H PRN IVP Nausea & Vomiting 01/31/17 20:15 03/02/17 20:14 Polyethylene Glycol (Miralax) 17 gm DAILYPRN PRN ORAL Constipation 01/31/17 20:15 03/02/17 20:14 Promethazine HCl/ Codeine (Phenergan with Codeine) 5 ml Q4H PRN ORAL For Cough 01/31/17 20:15 03/02/17 20:14 Temazepam 15 mg 15 mg HSPRN PRN ORAL Insomnia 01/31/17 20:15 02/07/17 20:14 Allergies: Coded Allergies: AZITHROMYCIN (Verified Adverse Reaction, 04/28/13) N#[id number]. 2ND DAY OF ROCEPHIN AND AZITHROMYCIN (04/21/13). PATIENT DEVELOPED HIVES AFTER ROCEPHIN AND AZITHROMYCIN. CEFTRIAXONE SODIUM (Verified Adverse Reaction, 04/28/13) N#[id number]: 2ND DAY OF ROCEPHIN AND AZITHROMYHCIN (04/21/13). DEVELOPED HIVES AFTER ROCEPHIN AND AZITHROMYCIN. ROS Limited/Unobtainable: No Constitutional: Reports: no symptoms HEENT: Reports: no symptoms Cardiovascular: Reports: no symptoms Respiratory: Reports: cough, sputum, wheezing Gastrointestinal/Abdominal: Reports: no symptoms Genitourinary: Reports: no symptoms Neurologic/Psychiatric: Reports: no symptoms Subjective 89 YO F admitted with cough and leukocytosis. Continues to have wheezing and cough. Cover for [facility]Dr Boykin. Objective Last Vital Signs Date Time Temp Pulse Resp B/P Pulse Ox O2 Delivery O2 Flow Rate FiO2 02/02/17 12:00 98.4 67 20 116/69 95 Room Air General Appearance: WD/WN, no apparent distress, alert EENT: PERRL/EOMI, normal ENT inspection Neck: non-tender, normal alignment, supple Cardiovascular: normal peripheral pulses, normal rate, regular rhythm, no gallop/murmur, no JVD Respiratory/Chest: respiratory distress, crackles/rales, rhonchi - bilaterally , expiratory wheezing Abdomen: normal bowel sounds, non tender, soft, no organomegaly, no mass Extremities: normal range of motion, non-tender Neurologic: mental telepathist II-XII grossly normal, no motor/sensory deficits Laboratory Tests Test 02/02/17 05:20 White Blood Count 10.7 K/UL (4.8-10.8) Red Blood Count 3.67 M/UL (4.20-5.40) L Hemoglobin 10.0 G/DL (12.0-16.0) L Hematocrit 29.6 % (37.0-47.0) L Mean Corpuscular Volume 81 FL (80-99) Mean Corpuscular Hemoglobin 27.2 PG (27.0-31.0) Mean Corpuscular Hemoglobin Concent 33.7 G/DL (32.0-36.0) Red Cell Distribution Width 13.9 % (11.6-14.8) Platelet Count 209 K/UL (150-450) Mean Platelet Volume 6.9 FL (6.5-10.1) Neutrophils (%) (Auto) 66.2 % (45.0-75.0) Lymphocytes (%) (Auto) 22.2 % (20.0-45.0) Monocytes (%) (Auto) 7.7 % (1.0-10.0) Eosinophils (%) (Auto) 3.2 % (0.0-3.0) H Basophils (%) (Auto) 0.7 % (0.0-2.0) Sodium Level 139 mEQ/L (135-145) Potassium Level 3.4 mEQ/L (3.4-4.9) Chloride Level 101 mEQ/L (98-107) Carbon Dioxide Level 24 mEQ/L (20-30) Anion Gap 14 (5-15) Blood Urea Nitrogen 18 mg/dL (7-23) Creatinine 0.8 mg/dL (0.5-0.9) Estimat Glomerular Filtration Rate mL/min (>60) Glucose Level 103 mg/dL (74-106) Calcium Level 8.5 mg/dL (8.6-10.2) L Intake and Output 02/01/17 02/02/17 19:00 07:00 Intake Total 1000 ml 205 ml Balance 1000 ml 205 ml Intake Oral 1000 ml IV Total 205 ml # Voids 3 1 # Bowel Movements 1 Assessment/Plan Problem List: (1) Cough (2) Purulent bronchitis Assessment & Plan: See pulmonary note. Continue levaquin and aztreonam. Continue IV solumedrol. (3) Leukocytosis Assessment & Plan: Resolving on antibiotic. (4) Hypertension (5) Hypercholesteremia Status: not improved SULEMAN RANDLE Feb 02, 2017 13:36
[2017-02-02] MEDS: Solu-MEDROL 40mg Inj IVP SCH ×2 (14:03→22:27)
[2017-02-02 15:53] VITALS: BP 112/62
[2017-02-02] MEDS: DuoNeb 0.5-3(2.5)mg/3ml neb HHN SCH ×2 (19:00→20:13)
--- NOTE | 2017-02-02 19:43 | Infectious Diseases Prog Note ---
Assessment/Plan Assessment/Plan A: The patient is an 89-year-old female community-acquired pneumonia cough, sputum production improving Probably urinary tract infection. Rule out bacteremia. Leukocytosis. improving Hypertension. Hyperlipidemia Appendectomy Abdominal hysterectomy PLAN: cont on aztreonam, and Levaquin d# 2 / 7 Monitor CBC. Monitor BMP. Monitor cultures (blood, sputum, and urine). Monitor chest x-ray Subjective Allergies: Coded Allergies: AZITHROMYCIN (Verified Adverse Reaction, 04/28/13) N#75. 2ND DAY OF ROCEPHIN AND AZITHROMYCIN (04/21/13). PATIENT DEVELOPED HIVES AFTER ROCEPHIN AND AZITHROMYCIN. CEFTRIAXONE SODIUM (Verified Adverse Reaction, 04/28/13) N#75: 2ND DAY OF ROCEPHIN AND AZITHROMYHCIN (04/21/13). DEVELOPED HIVES AFTER ROCEPHIN AND AZITHROMYCIN. Subjective less cough Objective Vital Signs Last 24 Hour Vital Signs Date Time Temp Pulse Resp B/P Pulse Ox O2 Delivery O2 Flow Rate FiO2 02/02/17 15:53 98.1 67 20 112/62 93 Room Air 02/02/17 12:00 98.4 67 20 116/69 95 Room Air 02/02/17 08:00 95.9 78 20 97/60 97 Room Air 02/02/17 04:00 99.1 70 20 131/57 90 Room Air 02/02/17 00:00 98.7 71 20 120/51 91 Room Air 02/01/17 20:00 99.5 20 145/62 92 Room Air Height (Feet): 5 Height (Inches): 3.00 Weight (Pounds): 161 HEENT: mucous membranes moist Respiratory/Chest: normal breath sounds Cardiovascular: normal rate Abdomen: non distended Microbiology Date/Time Source Procedure Growth Status 01/31/17 17:30 Blood Blood Culture - Preliminary NO GROWTH AFTER 24 HOURS Resulted 01/31/17 17:15 Blood Blood Culture - Preliminary NO GROWTH AFTER 24 HOURS Resulted 01/31/17 20:12 Urine,Clean Catch Urine Culture - Preliminary Mixed Gram Positive Organism Resulted Laboratory Tests Test 02/02/17 05:20 White Blood Count 10.7 K/UL (4.8-10.8) Red Blood Count 3.67 M/UL (4.20-5.40) L Hemoglobin 10.0 G/DL (12.0-16.0) L Hematocrit 29.6 % (37.0-47.0) L Mean Corpuscular Volume 81 FL (80-99) Mean Corpuscular Hemoglobin 27.2 PG (27.0-31.0) Mean Corpuscular Hemoglobin Concent 33.7 G/DL (32.0-36.0) Red Cell Distribution Width 13.9 % (11.6-14.8) Platelet Count 209 K/UL (150-450) Mean Platelet Volume 6.9 FL (6.5-10.1) Neutrophils (%) (Auto) 66.2 % (45.0-75.0) Lymphocytes (%) (Auto) 22.2 % (20.0-45.0) Monocytes (%) (Auto) 7.7 % (1.0-10.0) Eosinophils (%) (Auto) 3.2 % (0.0-3.0) H Basophils (%) (Auto) 0.7 % (0.0-2.0) Sodium Level 139 mEQ/L (135-145) Potassium Level 3.4 mEQ/L (3.4-4.9) Chloride Level 101 mEQ/L (98-107) Carbon Dioxide Level 24 mEQ/L (20-30) Anion Gap 14 (5-15) Blood Urea Nitrogen 18 mg/dL (7-23) Creatinine 0.8 mg/dL (0.5-0.9) Estimat Glomerular Filtration Rate mL/min (>60) Glucose Level 103 mg/dL (74-106) Calcium Level 8.5 mg/dL (8.6-10.2) L Current Medications Medications (Trade) Dose Ordered Sig/Jess Route PRN Reason Start Time Stop Time Status Last Admin Dose Admin Acetaminophen (Tylenol) 650 mg Q4H PRN ORAL fever 01/31/17 20:15 03/02/17 20:14 Al Hydroxide/Mg Hydroxide (Mylanta II) 30 ml Q6H PRN ORAL dyspepsia 01/31/17 20:15 03/02/17 20:14 Albuterol/ Ipratropium (DuoNeb 0.5-3(2.5)mg/3ml) 3 ml EVERY 4 HOURS PRN HHN Shortness of Breath 01/31/17 20:15 02/05/17 20:14 Albuterol/ Ipratropium (DuoNeb 0.5-3(2.5)mg/3ml) 3 ml TIDRT HHN 02/02/17 13:00 02/07/17 12:59 Aztreonam 0.5 gm/ Dextrose 55 ml @ 110 mls/hr Q8HR IVPB 02/01/17 06:00 02/08/17 05:59 02/02/17 14:04 Gabapentin (Neurontin) 300 mg Q12HR ORAL 01/31/17 23:00 03/02/17 22:59 02/02/17 08:37 Heparin Sodium (Porcine) (Heparin 5000 units/ml) 5,000 units EVERY 12 HOURS SUBQ 01/31/17 21:00 03/02/17 20:59 02/02/17 08:40 Levofloxacin (Levaquin 750mg/ D5W) 150 ml @ 100 mls/hr Q48H IVPB 02/02/17 00:00 02/09/17 00:00 02/01/17 23:15 Methylprednisolone Sodium Succinate (Solu-MEDROL) 40 mg EVERY 8 HOURS IVP 02/02/17 14:00 03/04/17 13:59 02/02/17 14:03 Nitroglycerin (Ntg) 0.4 mg Q5M PRN SL Prn Chest Pain 01/31/17 20:15 03/02/17 20:14 Ondansetron HCl (Zofran) 4 mg Q6H PRN IVP Nausea & Vomiting 01/31/17 20:15 03/02/17 20:14 Polyethylene Glycol (Miralax) 17 gm DAILYPRN PRN ORAL Constipation 01/31/17 20:15 03/02/17 20:14 Promethazine HCl/ Codeine (Phenergan with Codeine) 5 ml Q4H PRN ORAL For Cough 01/31/17 20:15 03/02/17 20:14 Temazepam 15 mg 15 mg HSPRN PRN ORAL Insomnia 01/31/17 20:15 02/07/17 20:14 BERLIN AVILA M.D. Feb 02, 2017 19:43
[2017-02-02 20:00] VITALS: BP 101/47
[2017-02-03] VITALS: BP 110/72
[2017-02-03 04:00] VITALS: BP 124/77
[2017-02-03] MEDS: Aztreonam 0.5gm/D5W 55ml IVPB SCH ×6 (05:35→20:57)
[2017-02-03] MEDS: Solu-MEDROL 40mg Inj IVP SCH ×2 (05:35→20:57)
[2017-02-03 07:14] LABS: ANION GAP 14 (5-15); CALCIUM 8.6 mg/dL (8.6-10.2); CARBON DIOXIDE 22 mEQ/L (20-30); CHLORIDE 103 mEQ/L (98-107); CREATININE 0.9 mg/dL (0.5-0.9); HEMOLYSIS 2; POTASSIUM 3.9 mEQ/L (3.4-4.9); SODIUM 139 mEQ/L (135-145)
[2017-02-03 07:16] LABS: BASOPHILS % (AUTO) 0.3 % (0.0-2.0); LYMPHOCYTES % (AUTO) 14.5 % (20.0-45.0); MEAN CORPUSCULAR HEMOGLOBIN 26.1 PG (27.0-31.0); MEAN CORPUSCULAR HGB CONC 32.3 G/DL (32.0-36.0); MEAN CORPUSCULAR VOLUME 81 FL (80-99); MEAN PLATELET VOLUME 6.9 FL (6.5-10.1); MONOCYTES % (AUTO) 1.7 % (1.0-10.0); NEUTROPHILS % (AUTO) 83.5 % (45.0-75.0); PLATELET COUNT 232 K/UL (150-450); RED BLOOD COUNT 3.95 M/UL (4.20-5.40); WHITE BLOOD COUNT 12.7 K/UL (4.8-10.8)
[2017-02-03 08:00] VITALS: BP 129/67
[2017-02-03] MEDS: DuoNeb 0.5-3(2.5)mg/3ml neb HHN SCH ×3 (08:08→19:59)
[2017-02-03] MEDS: Heparin 5000 units/ml inj SUBQ SCH ×2 (09:00→21:06)
--- NOTE | 2017-02-03 11:38 | Infectious Diseases Prog Note ---
Assessment/Plan Assessment/Plan A; Bronchitis HPN Anemia P; Continue Levaquin Subjective ROS Limited/Unobtainable: No Constitutional: Reports: no symptoms Respiratory: Reports: dry cough Cardiovascular: Reports: no symptoms Gastrointestinal/Abdominal: Reports: no symptoms Allergies: Coded Allergies: AZITHROMYCIN (Verified Adverse Reaction, 04/28/13) N#75. 2ND DAY OF ROCEPHIN AND AZITHROMYCIN (04/21/13). PATIENT DEVELOPED HIVES AFTER ROCEPHIN AND AZITHROMYCIN. CEFTRIAXONE SODIUM (Verified Adverse Reaction, 04/28/13) N#75: 2ND DAY OF ROCEPHIN AND AZITHROMYHCIN (04/21/13). DEVELOPED HIVES AFTER ROCEPHIN AND AZITHROMYCIN. Objective Vital Signs Last 24 Hour Vital Signs Date Time Temp Pulse Resp B/P Pulse Ox O2 Delivery O2 Flow Rate FiO2 02/03/17 08:10 21 02/03/17 08:10 65 20 95 Room Air 21 02/03/17 08:00 96.6 79 20 129/67 94 Room Air 02/03/17 04:00 97.7 59 20 124/77 96 Room Air 02/03/17 00:00 97.2 62 20 110/72 96 Room Air 02/02/17 20:10 78 18 100 Room Air 02/02/17 20:00 97.1 74 20 101/47 95 Room Air 02/02/17 19:57 75 18 94 Room Air 02/02/17 15:53 98.1 67 20 112/62 93 Room Air 02/02/17 12:00 98.4 67 20 116/69 95 Room Air Height (Feet): 5 Height (Inches): 3.00 Weight (Pounds): 161 General Appearance: no acute distress HEENT: mucous membranes moist Respiratory/Chest: lungs clear Cardiovascular: normal rate Abdomen: soft, non tender Extremities: no edema Neurologic/Psychiatric: alert, oriented x 3, responsive Microbiology Date/Time Source Procedure Growth Status 01/31/17 17:30 Blood Blood Culture - Preliminary NO GROWTH AFTER 48 HOURS Resulted 01/31/17 17:15 Blood Blood Culture - Preliminary NO GROWTH AFTER 48 HOURS Resulted 01/31/17 20:12 Urine,Clean Catch Urine Culture - Final Mixed Gram Positive Organism Complete Laboratory Tests Test 02/03/17 05:20 White Blood Count 12.7 K/UL (4.8-10.8) H Red Blood Count 3.95 M/UL (4.20-5.40) L Hemoglobin 10.3 G/DL (12.0-16.0) L Hematocrit 31.9 % (37.0-47.0) L Mean Corpuscular Volume 81 FL (80-99) Mean Corpuscular Hemoglobin 26.1 PG (27.0-31.0) L Mean Corpuscular Hemoglobin Concent 32.3 G/DL (32.0-36.0) Red Cell Distribution Width 14.0 % (11.6-14.8) Platelet Count 232 K/UL (150-450) Mean Platelet Volume 6.9 FL (6.5-10.1) Neutrophils (%) (Auto) 83.5 % (45.0-75.0) H Lymphocytes (%) (Auto) 14.5 % (20.0-45.0) L Monocytes (%) (Auto) 1.7 % (1.0-10.0) Eosinophils (%) (Auto) 0.0 % (0.0-3.0) Basophils (%) (Auto) 0.3 % (0.0-2.0) Sodium Level 139 mEQ/L (135-145) Potassium Level 3.9 mEQ/L (3.4-4.9) Chloride Level 103 mEQ/L (98-107) Carbon Dioxide Level 22 mEQ/L (20-30) Anion Gap 14 (5-15) Blood Urea Nitrogen 23 mg/dL (7-23) Creatinine 0.9 mg/dL (0.5-0.9) Estimat Glomerular Filtration Rate mL/min (>60) Glucose Level 169 mg/dL (74-106) H Calcium Level 8.6 mg/dL (8.6-10.2) Current Medications Medications (Trade) Dose Ordered Sig/Jess Route PRN Reason Start Time Stop Time Status Last Admin Dose Admin Acetaminophen (Tylenol) 650 mg Q4H PRN ORAL fever 01/31/17 20:15 03/02/17 20:14 Al Hydroxide/Mg Hydroxide (Mylanta II) 30 ml Q6H PRN ORAL dyspepsia 01/31/17 20:15 03/02/17 20:14 Albuterol/ Ipratropium (DuoNeb 0.5-3(2.5)mg/3ml) 3 ml EVERY 4 HOURS PRN HHN Shortness of Breath 01/31/17 20:15 02/05/17 20:14 Albuterol/ Ipratropium (DuoNeb 0.5-3(2.5)mg/3ml) 3 ml TIDRT HHN 02/02/17 13:00 02/07/17 12:59 02/03/17 08:08 Aztreonam 0.5 gm/ Dextrose 55 ml @ 110 mls/hr Q8HR IVPB 02/01/17 06:00 02/08/17 05:59 02/03/17 05:35 Gabapentin (Neurontin) 300 mg Q12HR ORAL 01/31/17 23:00 03/02/17 22:59 02/03/17 08:58 Heparin Sodium (Porcine) (Heparin 5000 units/ml) 5,000 units EVERY 12 HOURS SUBQ 01/31/17 21:00 03/02/17 20:59 02/03/17 09:00 Levofloxacin (Levaquin 750mg/ D5W) 150 ml @ 100 mls/hr Q48H IVPB 02/02/17 00:00 02/09/17 00:00 02/01/17 23:15 Methylprednisolone Sodium Succinate (Solu-MEDROL) 40 mg EVERY 8 HOURS IVP 02/02/17 14:00 03/04/17 13:59 02/03/17 05:35 Nitroglycerin (Ntg) 0.4 mg Q5M PRN SL Prn Chest Pain 01/31/17 20:15 03/02/17 20:14 Ondansetron HCl (Zofran) 4 mg Q6H PRN IVP Nausea & Vomiting 01/31/17 20:15 03/02/17 20:14 Polyethylene Glycol (Miralax) 17 gm DAILYPRN PRN ORAL Constipation 01/31/17 20:15 03/02/17 20:14 Promethazine HCl/ Codeine (Phenergan with Codeine) 5 ml Q4H PRN ORAL For Cough 01/31/17 20:15 03/02/17 20:14 Temazepam 15 mg 15 mg HSPRN PRN ORAL Insomnia 01/31/17 20:15 02/07/17 20:14 [facility]LE Feb 03, 2017 11:38
--- NOTE | 2017-02-03 11:41 | Pulmonology Progress Note ---
Assessment/Plan Assessment/Plan ASSESSMENT leukocytosis purulent bronchitis probably CAP bronchospasm UTI hx of HTN PLAN OF CARE MS floor O2 HHN prn keep sat above 92% empiric abx sputum cx if able , urine cxwith mixed GPO, contaminant ID follows antitussive prn fup CXR - no acute PNA added HHN ATC in addition to PRN and CPT to be done with HHN tid x48 hrs steroids short term with tapering BP management, currently normotensive DVT prophylaxis bowel regimen dc plan for am if continues to improve case discussed and evaluated by supervising physician Subjective Allergies: Coded Allergies: AZITHROMYCIN (Verified Adverse Reaction, 04/28/13) N#[id number]. 2ND DAY OF ROCEPHIN AND AZITHROMYCIN (04/21/13). PATIENT DEVELOPED HIVES AFTER ROCEPHIN AND AZITHROMYCIN. CEFTRIAXONE SODIUM (Verified Adverse Reaction, 04/28/13) N#[id number]: 2ND DAY OF ROCEPHIN AND AZITHROMYHCIN (04/21/13). DEVELOPED HIVES AFTER ROCEPHIN AND AZITHROMYCIN. Subjective mild leukocytosis today, afebrile clinically with improvement no SOB on RA sat stable Objective Last 24 Hour Vital Signs Date Time Temp Pulse Resp B/P Pulse Ox O2 Delivery O2 Flow Rate FiO2 02/03/17 08:10 21 02/03/17 08:10 65 20 95 Room Air 21 02/03/17 08:00 96.6 79 20 129/67 94 Room Air 02/03/17 04:00 97.7 59 20 124/77 96 Room Air 02/03/17 00:00 97.2 62 20 110/72 96 Room Air 02/02/17 20:10 78 18 100 Room Air 02/02/17 20:00 97.1 74 20 101/47 95 Room Air 02/02/17 19:57 75 18 94 Room Air 02/02/17 15:53 98.1 67 20 112/62 93 Room Air 02/02/17 12:00 98.4 67 20 116/69 95 Room Air Intake and Output 02/02/17 02/03/17 19:00 07:00 Intake Total 775 ml 230 ml Balance 775 ml 230 ml Intake Oral 720 ml 120 ml IV Total 55 ml 110 ml # Voids 4 1 Objective General Appearance: no apparent distress, alert, other - A/A/O x 3 Kazakh speaking elderly female in NAD Lines, tubes and drains: peripheral HEENT: normocephalic, atraumatic, anicteric, mucous membranes moist, supple, no JVD Neck: non-tender, normal alignment, supple Respiratory/Chest: chest wall non-tender, no respiratory distress, no accessory muscle use, few isolated expiratory wheezes Cardiovascular/Chest: normal peripheral pulses, normal rate, regular rhythm, no JVD Abdomen: normal bowel sounds, non tender, soft Extremities: non-tender, no calf tenderness, normal capillary refill Skin Exam: normal pigmentation, warm/dry Neurologic: no motor/sensory deficits, alert, responsive Musculoskeletal: atrophy - BLE Microbiology Date/Time Source Procedure Growth Status 01/31/17 17:30 Blood Blood Culture - Preliminary NO GROWTH AFTER 48 HOURS Resulted 01/31/17 17:15 Blood Blood Culture - Preliminary NO GROWTH AFTER 48 HOURS Resulted 01/31/17 20:12 Urine,Clean Catch Urine Culture - Final Mixed Gram Positive Organism Complete Laboratory Tests 02/03/17 05:20: White Blood Count 12.7H, Red Blood Count 3.95L, Hemoglobin 10.3L, Hematocrit 31.9L, Mean Corpuscular Volume 81, Mean Corpuscular Hemoglobin 26.1L, Mean Corpuscular Hemoglobin Concent 32.3, Red Cell Distribution Width 14.0, Platelet Count 232, Mean Platelet Volume 6.9, Neutrophils (%) (Auto) 83.5H, Lymphocytes ( %) (Auto) 14.5L, Monocytes (%) (Auto) 1.7, Eosinophils (%) (Auto) 0.0, Basophils (%) (Auto) 0.3, Sodium Level 139, Potassium Level 3.9, Chloride Level 103, Carbon Dioxide Level 22, Anion Gap 14, Blood Urea Nitrogen 23, Creatinine 0.9, Estimat Glomerular Filtration Rate , Glucose Level 169H, Calcium Level 8.6 Current Medications Medications (Trade) Dose Ordered Sig/Jess Route PRN Reason Start Time Stop Time Status Last Admin Dose Admin Acetaminophen (Tylenol) 650 mg Q4H PRN ORAL fever 01/31/17 20:15 03/02/17 20:14 Al Hydroxide/Mg Hydroxide (Mylanta II) 30 ml Q6H PRN ORAL dyspepsia 01/31/17 20:15 03/02/17 20:14 Albuterol/ Ipratropium (DuoNeb 0.5-3(2.5)mg/3ml) 3 ml EVERY 4 HOURS PRN HHN Shortness of Breath 01/31/17 20:15 02/05/17 20:14 Albuterol/ Ipratropium (DuoNeb 0.5-3(2.5)mg/3ml) 3 ml TIDRT HHN 02/02/17 13:00 02/07/17 12:59 02/03/17 08:08 Aztreonam 0.5 gm/ Dextrose 55 ml @ 110 mls/hr Q8HR IVPB 02/01/17 06:00 02/08/17 05:59 02/03/17 05:35 Gabapentin (Neurontin) 300 mg Q12HR ORAL 01/31/17 23:00 03/02/17 22:59 02/03/17 08:58 Heparin Sodium (Porcine) (Heparin 5000 units/ml) 5,000 units EVERY 12 HOURS SUBQ 01/31/17 21:00 03/02/17 20:59 02/03/17 09:00 Levofloxacin (Levaquin 750mg/ D5W) 150 ml @ 100 mls/hr Q48H IVPB 02/02/17 00:00 02/09/17 00:00 02/01/17 23:15 Methylprednisolone Sodium Succinate (Solu-MEDROL) 40 mg EVERY 8 HOURS IVP 02/02/17 14:00 03/04/17 13:59 02/03/17 05:35 Nitroglycerin (Ntg) 0.4 mg Q5M PRN SL Prn Chest Pain 01/31/17 20:15 03/02/17 20:14 Ondansetron HCl (Zofran) 4 mg Q6H PRN IVP Nausea & Vomiting 01/31/17 20:15 03/02/17 20:14 Polyethylene Glycol (Miralax) 17 gm DAILYPRN PRN ORAL Constipation 01/31/17 20:15 03/02/17 20:14 Promethazine HCl/ Codeine (Phenergan with Codeine) 5 ml Q4H PRN ORAL For Cough 01/31/17 20:15 03/02/17 20:14 Temazepam 15 mg 15 mg HSPRN PRN ORAL Insomnia 01/31/17 20:15 02/07/17 20:14 Jackson Sharma)Cely NP 18, 2017 11:41
[2017-02-03] MEDS ORDERED: DuoNeb 0.5-3(2.5)mg/3ml neb HHN PRN (11:45)
[2017-02-03 11:59] VITALS: BP 113/71
[2017-02-03 15:55] VITALS: BP 123/68
--- NOTE | 2017-02-03 16:02 | Internal Med Progress Note ---
Subjective Date of Service: Feb 03, 2017 Physician Name Suleman Randle Attending Physician Jesse Boykin MD Current Medications Medications (Trade) Dose Ordered Sig/Jess Route PRN Reason Start Time Stop Time Status Last Admin Dose Admin Acetaminophen (Tylenol) 650 mg Q4H PRN ORAL fever 01/31/17 20:15 03/02/17 20:14 Al Hydroxide/Mg Hydroxide (Mylanta II) 30 ml Q6H PRN ORAL dyspepsia 01/31/17 20:15 03/02/17 20:14 Albuterol/ Ipratropium (DuoNeb 0.5-3(2.5)mg/3ml) 3 ml EVERY 4 HOURS PRN HHN Shortness of Breath 02/03/17 11:45 02/08/17 23:59 Albuterol/ Ipratropium (DuoNeb 0.5-3(2.5)mg/3ml) 3 ml TIDRT HHN 02/02/17 13:00 02/07/17 12:59 02/03/17 13:01 Aztreonam 0.5 gm/ Dextrose 55 ml @ 110 mls/hr Q8HR IVPB 02/01/17 06:00 02/08/17 05:59 02/03/17 13:32 Gabapentin (Neurontin) 300 mg Q12HR ORAL 01/31/17 23:00 03/02/17 22:59 02/03/17 08:58 Heparin Sodium (Porcine) (Heparin 5000 units/ml) 5,000 units EVERY 12 HOURS SUBQ 01/31/17 21:00 03/02/17 20:59 02/03/17 09:00 Levofloxacin (Levaquin 750mg/ D5W) 150 ml @ 100 mls/hr Q48H IVPB 02/02/17 00:00 02/09/17 00:00 02/01/17 23:15 Methylprednisolone Sodium Succinate (Solu-MEDROL) 40 mg EVERY 12 HOURS IVP 02/03/17 21:00 03/05/17 20:59 Nitroglycerin (Ntg) 0.4 mg Q5M PRN SL Prn Chest Pain 01/31/17 20:15 03/02/17 20:14 Ondansetron HCl (Zofran) 4 mg Q6H PRN IVP Nausea & Vomiting 6/15/17 20:15 03/02/17 20:14 Polyethylene Glycol (Miralax) 17 gm DAILYPRN PRN ORAL Constipation 01/31/17 20:15 03/02/17 20:14 Promethazine HCl/ Codeine (Phenergan with Codeine) 5 ml Q4H PRN ORAL For Cough 01/31/17 20:15 03/02/17 20:14 Temazepam 15 mg 15 mg HSPRN PRN ORAL Insomnia 01/31/17 20:15 02/07/17 20:14 Allergies: Coded Allergies: AZITHROMYCIN (Verified Adverse Reaction, 04/28/13) N#[id number]. 2ND DAY OF ROCEPHIN AND AZITHROMYCIN (04/21/13). PATIENT DEVELOPED HIVES AFTER ROCEPHIN AND AZITHROMYCIN. CEFTRIAXONE SODIUM (Verified Adverse Reaction, 04/28/13) N#[id number]: 2ND DAY OF ROCEPHIN AND AZITHROMYHCIN (04/21/13). DEVELOPED HIVES AFTER ROCEPHIN AND AZITHROMYCIN. ROS Limited/Unobtainable: No Constitutional: Reports: no symptoms HEENT: Reports: no symptoms Cardiovascular: Reports: no symptoms Respiratory: Reports: cough, sputum Gastrointestinal/Abdominal: Reports: no symptoms Genitourinary: Reports: no symptoms Neurologic/Psychiatric: Reports: no symptoms Subjective 89 YO F admitted with cough and leukocytosis. Continues to have wheezing and cough. Cover for Int Med-Dr Boykin. Objective Last Vital Signs Date Time Temp Pulse Resp B/P Pulse Ox O2 Delivery O2 Flow Rate FiO2 02/03/17 15:55 97.2 74 18 123/68 93 Room Air 02/03/17 13:20 21 Laboratory Tests Test 02/03/17 05:20 White Blood Count 12.7 K/UL (4.8-10.8) H Red Blood Count 3.95 M/UL (4.20-5.40) L Hemoglobin 10.3 G/DL (12.0-16.0) L Hematocrit 31.9 % (37.0-47.0) L Mean Corpuscular Volume 81 FL (80-99) Mean Corpuscular Hemoglobin 26.1 PG (27.0-31.0) L Mean Corpuscular Hemoglobin Concent 32.3 G/DL (32.0-36.0) Red Cell Distribution Width 14.0 % (11.6-14.8) Platelet Count 232 K/UL (150-450) Mean Platelet Volume 6.9 FL (6.5-10.1) Neutrophils (%) (Auto) 83.5 % (45.0-75.0) H Lymphocytes (%) (Auto) 14.5 % (20.0-45.0) L Monocytes (%) (Auto) 1.7 % (1.0-10.0) Eosinophils (%) (Auto) 0.0 % (0.0-3.0) Basophils (%) (Auto) 0.3 % (0.0-2.0) Sodium Level 139 mEQ/L (135-145) Potassium Level 3.9 mEQ/L (3.4-4.9) Chloride Level 103 mEQ/L (98-107) Carbon Dioxide Level 22 mEQ/L (20-30) Anion Gap 14 (5-15) Blood Urea Nitrogen 23 mg/dL (7-23) Creatinine 0.9 mg/dL (0.5-0.9) Estimat Glomerular Filtration Rate mL/min (>60) Glucose Level 169 mg/dL (74-106) H Calcium Level 8.6 mg/dL (8.6-10.2) Microbiology Date/Time Source Procedure Growth Status 01/31/17 17:30 Blood Blood Culture - Preliminary NO GROWTH AFTER 48 HOURS Resulted 01/31/17 17:15 Blood Blood Culture - Preliminary NO GROWTH AFTER 48 HOURS Resulted 01/31/17 20:12 Urine,Clean Catch Urine Culture - Final Mixed Gram Positive Organism Complete Intake and Output 02/02/17 02/03/17 19:00 07:00 Intake Total 775 ml 230 ml Balance 775 ml 230 ml Intake Oral 720 ml 120 ml IV Total 55 ml 110 ml # Voids 4 1 Objective General Appearance: WD/WN, no apparent distress, alert EENT: PERRL/EOMI, normal ENT inspection Neck: non-tender, normal alignment, supple Cardiovascular: normal peripheral pulses, normal rate, regular rhythm, no gallop/murmur, no JVD Respiratory/Chest: respiratory distress, crackles/rales, rhonchi - bilaterally , expiratory wheezing Abdomen: normal bowel sounds, non tender, soft, no organomegaly, no mass Extremities: normal range of motion, non-tender 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 Continue levaquin and aztreonam. Continue IV solumedrol. (3) Leukocytosis Assessment & Plan: See ID note. Resolving on antibiotic. (4) Hypertension (5) Hypercholesteremia Status: progressing SULEMAN RANDLE Feb 03, 2017 16:01
[2017-02-03] MEDS ORDERED: guaiFENesin DM 100mg/5ml ORAL PRN (16:15)
[2017-02-03 20:00] VITALS: BP 143/68
[2017-02-04] VITALS (7 sets, daily range): BP systolic 117–152; BP diastolic 8–80
[2017-02-04] MEDS: Aztreonam 0.5gm/D5W 55ml IVPB SCH ×6 (05:20→21:29)
[2017-02-04 06:55] LABS: MEAN CORPUSCULAR HEMOGLOBIN 26.2 PG (27.0-31.0); MEAN CORPUSCULAR HGB CONC 32.7 G/DL (32.0-36.0); MEAN CORPUSCULAR VOLUME 80 FL (80-99); MEAN PLATELET VOLUME 6.8 FL (6.5-10.1); PLATELET COUNT 240 K/UL (150-450); RED BLOOD COUNT 3.73 M/UL (4.20-5.40); RED CELL DISTRIBUTION WIDTH 14.4 % (11.6-14.8); WHITE BLOOD COUNT 17.2 K/UL (4.8-10.8)
[2017-02-04 06:57] LABS: ANION GAP 13 (5-15); CALCIUM 8.4 mg/dL (8.6-10.2); CARBON DIOXIDE 22 mEQ/L (20-30); CHLORIDE 103 mEQ/L (98-107); CREATININE 0.7 mg/dL (0.5-0.9); HEMOLYSIS 20; POTASSIUM 4.1 mEQ/L (3.4-4.9); SODIUM 138 mEQ/L (135-145)
[2017-02-04] MEDS: DuoNeb 0.5-3(2.5)mg/3ml neb HHN SCH ×3 (07:27→19:54)
[2017-02-04 08:18] LABS: ANISOCYTOSIS 1+; BAND NEUTROPHILS % (MANUAL) 0 % (0-8); BASOPHILS % (MANUAL) 0 % (0-2); EOSINOPHILS % (MANUAL) 0 % (0-3); LYMPHOCYTES % (MANUAL) 8 % (20-45); NEUTROPHILS % (MANUAL) 91 % (45-75); PLATELET ESTIMATE ADEQUATE; PLATELET MORPHOLOGY NORMAL; TOTAL CELLS COUNTED 100
[2017-02-04 08:19] LABS: HYPOCHROMASIA 1+
--- NOTE | 2017-02-04 08:41 | Cardiology Report ---
APPROVED REPORT EKG Measurement Heart [id number] Sinus rhythm with 1st degree AV block Otherwise normal ECG
[2017-02-04] MEDS: Heparin 5000 units/ml inj SUBQ SCH ×2 (08:53→21:34)
[2017-02-04] MEDS: Solu-MEDROL 40mg Inj IVP SCH (08:53)
--- NOTE | 2017-02-04 09:16 | Infectious Diseases Prog Note ---
Assessment/Plan Assessment/Plan A: The patient is an 89-year-old female community-acquired pneumonia cough, sputum production improving Probably urinary tract infection. Rule out bacteremia. Leukocytosis. ( 2/2 steroids ) Legionella : neg Hypertension. Hyperlipidemia Appendectomy Abdominal hysterectomy PLAN: cont on aztreonam, and Levaquin d# 4 / , upon DC will cont w oral Levaquin only to complete the course Monitor CBC. Monitor BMP. Monitor cultures (blood) Monitor chest x-ray Subjective Allergies: Coded Allergies: AZITHROMYCIN (Verified Adverse Reaction, 04/28/13) N#[id number]. 2ND DAY OF ROCEPHIN AND AZITHROMYCIN (04/21/13). PATIENT DEVELOPED HIVES AFTER ROCEPHIN AND AZITHROMYCIN. CEFTRIAXONE SODIUM (Verified Adverse Reaction, 04/28/13) N#: 2ND DAY OF ROCEPHIN AND AZITHROMYHCIN (04/21/13). DEVELOPED HIVES AFTER ROCEPHIN AND AZITHROMYCIN. Subjective feeling better Objective Vital Signs Last 24 Hour Vital Signs Date Time Temp Pulse Resp B/P Pulse Ox O2 Delivery O2 Flow Rate FiO2 02/04/17 08:00 96.6 74 18 117/71 96 Room Air 02/04/17 07:34 74 18 99 Room Air 02/04/17 07:26 21 02/04/17 07:26 75 16 99 Room Air 02/04/17 04:00 97.7 65 20 152/75 Room Air 02/04/17 00:00 97.8 66 18 118/58 92 Room Air 02/03/17 20:10 68 18 99 Room Air 02/03/17 20:00 98.6 69 20 143/68 96 Room Air 02/03/17 20:00 21 02/03/17 19:59 72 16 97 Room Air 21 02/03/17 15:55 97.2 74 18 123/68 93 Room Air 02/03/17 13:20 70 18 99 Room Air 21 02/03/17 13:02 21 02/03/17 13:02 70 18 99 Room Air 21 02/03/17 11:59 96.3 74 18 113/71 92 Room Air Height (Feet): 5 Height (Inches): 3.00 Weight (Pounds): 161 HEENT: atraumatic Respiratory/Chest: lungs clear Cardiovascular: regular rhythm Abdomen: non distended Laboratory Tests Test 02/04/17 05:50 White Blood Count 17.2 K/UL (4.8-10.8) H Red Blood Count 3.73 M/UL (4.20-5.40) L Hemoglobin 9.8 G/DL (12.0-16.0) L Hematocrit 29.9 % (37.0-47.0) L Mean Corpuscular Volume 80 FL (80-99) Mean Corpuscular Hemoglobin 26.2 PG (27.0-31.0) L Mean Corpuscular Hemoglobin Concent 32.7 G/DL (32.0-36.0) Red Cell Distribution Width 14.4 % (11.6-14.8) Platelet Count 240 K/UL (150-450) Mean Platelet Volume 6.8 FL (6.5-10.1) Neutrophils (%) (Auto) % (45.0-75.0) Lymphocytes (%) (Auto) % (20.0-45.0) Monocytes (%) (Auto) % (1.0-10.0) Eosinophils (%) (Auto) % (0.0-3.0) Basophils (%) (Auto) % (0.0-2.0) Differential Total Cells Counted 100 Neutrophils % (Manual) 91 % (45-75) H Lymphocytes % (Manual) 8 % (20-45) L Monocytes % (Manual) 1 % (1-10) Eosinophils % (Manual) 0 % (0-3) Basophils % (Manual) 0 % (0-2) Band Neutrophils 0 % (0-8) Platelet Estimate Adequate Platelet Morphology Normal Hypochromasia 1+ Anisocytosis 1+ Sodium Level 138 mEQ/L (135-145) Potassium Level 4.1 mEQ/L (3.4-4.9) Chloride Level 103 mEQ/L (98-107) Carbon Dioxide Level 22 mEQ/L (20-30) Anion Gap 13 (5-15) Blood Urea Nitrogen 25 mg/dL (7-23) H Creatinine 0.7 mg/dL (0.5-0.9) Estimat Glomerular Filtration Rate mL/min (>60) Glucose Level 148 mg/dL (74-106) H Calcium Level 8.4 mg/dL (8.6-10.2) L Current Medications Medications (Trade) Dose Ordered Sig/Jess Route PRN Reason Start Time Stop Time Status Last Admin Dose Admin Acetaminophen (Tylenol) 650 mg Q4H PRN ORAL fever 01/31/17 20:15 03/02/17 20:14 Al Hydroxide/Mg Hydroxide (Mylanta II) 30 ml Q6H PRN ORAL dyspepsia 01/31/17 20:15 03/02/17 20:14 Albuterol/ Ipratropium (DuoNeb 0.5-3(2.5)mg/3ml) 3 ml EVERY 4 HOURS PRN HHN Shortness of Breath 02/03/17 11:45 02/08/17 23:59 Albuterol/ Ipratropium (DuoNeb 0.5-3(2.5)mg/3ml) 3 ml TIDRT HHN 02/02/17 13:00 02/07/17 12:59 02/04/17 07:27 Aztreonam 0.5 gm/ Dextrose 55 ml @ 110 mls/hr Q8HR IVPB 02/01/17 06:00 02/08/17 05:59 02/04/17 05:20 Gabapentin (Neurontin) 300 mg Q12HR ORAL 01/31/17 23:00 03/02/17 22:59 02/04/17 08:49 Guaifenesin/ Dextromethorphan (Robitussin DM) 10 ml Q4H PRN ORAL For Cough 02/03/17 16:15 03/05/17 16:14 Heparin Sodium (Porcine) (Heparin 5000 units/ml) 5,000 units EVERY 12 HOURS SUBQ 01/31/17 21:00 03/02/17 20:59 02/04/17 08:53 Levofloxacin (Levaquin 750mg/ D5W) 150 ml @ 100 mls/hr Q48H IVPB 02/02/17 00:00 02/09/17 00:00 02/04/17 00:12 Methylprednisolone Sodium Succinate (Solu-MEDROL) 40 mg EVERY 12 HOURS IVP 02/03/17 21:00 03/05/17 20:59 02/04/17 08:53 Nitroglycerin (Ntg) 0.4 mg Q5M PRN SL Prn Chest Pain 01/31/17 20:15 03/02/17 20:14 Ondansetron HCl (Zofran) 4 mg Q6H PRN IVP Nausea & Vomiting 01/31/17 20:15 03/02/17 20:14 Polyethylene Glycol (Miralax) 17 gm DAILYPRN PRN ORAL Constipation 01/31/17 20:15 03/02/17 20:14 Temazepam 15 mg 15 mg HSPRN PRN ORAL Insomnia 01/31/17 20:15 02/07/17 20:14 BERLIN AVILA M.D. Feb 04, 2017 09:16
--- NOTE | 2017-02-04 10:21 | Internal Med Progress Note ---
Subjective Date of Service: Feb 04, 2017 Physician Name RandleMadhuri Attending Physician Jesse Boykin MD Current Medications Medications (Trade) Dose Ordered Sig/Jess Route PRN Reason Start Time Stop Time Status Last Admin Dose Admin Acetaminophen (Tylenol) 650 mg Q4H PRN ORAL fever 01/31/17 20:15 03/02/17 20:14 Al Hydroxide/Mg Hydroxide (Mylanta II) 30 ml Q6H PRN ORAL dyspepsia 01/31/17 20:15 03/02/17 20:14 Albuterol/ Ipratropium (DuoNeb 0.5-3(2.5)mg/3ml) 3 ml EVERY 4 HOURS PRN HHN Shortness of Breath 02/03/17 11:45 02/08/17 23:59 Albuterol/ Ipratropium (DuoNeb 0.5-3(2.5)mg/3ml) 3 ml TIDRT HHN 02/02/17 13:00 02/07/17 12:59 02/04/17 07:27 Aztreonam 0.5 gm/ Dextrose 55 ml @ 110 mls/hr Q8HR IVPB 02/01/17 06:00 02/08/17 05:59 02/04/17 05:20 Gabapentin (Neurontin) 300 mg Q12HR ORAL 01/31/17 23:00 03/02/17 22:59 02/04/17 08:49 Guaifenesin/ Dextromethorphan (Robitussin DM) 10 ml Q4H PRN ORAL For Cough 02/03/17 16:15 03/05/17 16:14 Heparin Sodium (Porcine) (Heparin 5000 units/ml) 5,000 units EVERY 12 HOURS SUBQ 01/31/17 21:00 03/02/17 20:59 02/04/17 08:53 Levofloxacin (Levaquin 750mg/ D5W) 150 ml @ 100 mls/hr Q48H IVPB 02/02/17 00:00 02/09/17 00:00 02/04/17 00:12 Methylprednisolone Sodium Succinate (Solu-MEDROL) 40 mg EVERY 12 HOURS IVP 02/03/17 21:00 03/05/17 20:59 02/04/17 08:53 Nitroglycerin (Ntg) 0.4 mg Q5M PRN SL Prn Chest Pain 01/31/17 20:15 03/02/17 20:14 Ondansetron HCl (Zofran) 4 mg Q6H PRN IVP Nausea & Vomiting 01/31/17 20:15 03/02/17 20:14 Polyethylene Glycol (Miralax) 17 gm DAILYPRN PRN ORAL Constipation 01/31/17 20:15 03/02/17 20:14 Temazepam 15 mg 15 mg HSPRN PRN ORAL Insomnia 01/31/17 20:15 02/07/17 20:14 Allergies: Coded Allergies: AZITHROMYCIN (Verified Adverse Reaction, 04/28/13) N#[id number]. 2ND DAY OF ROCEPHIN AND AZITHROMYCIN (04/21/13). PATIENT DEVELOPED HIVES AFTER ROCEPHIN AND AZITHROMYCIN. CEFTRIAXONE SODIUM (Verified Adverse Reaction, 04/28/13) N#[id number]: 2ND DAY OF ROCEPHIN AND AZITHROMYHCIN (04/21/13). DEVELOPED HIVES AFTER ROCEPHIN AND AZITHROMYCIN. ROS Limited/Unobtainable: No Constitutional: Reports: no symptoms HEENT: Reports: no symptoms Cardiovascular: Reports: no symptoms Respiratory: Reports: cough, sputum Gastrointestinal/Abdominal: Reports: no symptoms Genitourinary: Reports: no symptoms Neurologic/Psychiatric: Reports: no symptoms Subjective 89 YO F admitted with cough and leukocytosis. Continues to have wheezing and cough. Cover for [facility]-Dr Boykin. Objective Last Vital Signs Date Time Temp Pulse Resp B/P Pulse Ox O2 Delivery O2 Flow Rate FiO2 02/04/17 08:00 96.6 74 18 117/71 96 Room Air 02/04/17 07:34 21 Laboratory Tests Test 02/04/17 05:50 White Blood Count 17.2 K/UL (4.8-10.8) H Red Blood Count 3.73 M/UL (4.20-5.40) L Hemoglobin 9.8 G/DL (12.0-16.0) L Hematocrit 29.9 % (37.0-47.0) L Mean Corpuscular Volume 80 FL (80-99) Mean Corpuscular Hemoglobin 26.2 PG (27.0-31.0) L Mean Corpuscular Hemoglobin Concent 32.7 G/DL (32.0-36.0) Red Cell Distribution Width 14.4 % (11.6-14.8) Platelet Count 240 K/UL (150-450) Mean Platelet Volume 6.8 FL (6.5-10.1) Neutrophils (%) (Auto) % (45.0-75.0) Lymphocytes (%) (Auto) % (20.0-45.0) Monocytes (%) (Auto) % (1.0-10.0) Eosinophils (%) (Auto) % (0.0-3.0) Basophils (%) (Auto) % (0.0-2.0) Differential Total Cells Counted 100 Neutrophils % (Manual) 91 % (45-75) H Lymphocytes % (Manual) 8 % (20-45) L Monocytes % (Manual) 1 % (1-10) Eosinophils % (Manual) 0 % (0-3) Basophils % (Manual) 0 % (0-2) Band Neutrophils 0 % (0-8) Platelet Estimate Adequate Platelet Morphology Normal Hypochromasia 1+ Anisocytosis 1+ Sodium Level 138 mEQ/L (135-145) Potassium Level 4.1 mEQ/L (3.4-4.9) Chloride Level 103 mEQ/L (98-107) Carbon Dioxide Level 22 mEQ/L (20-30) Anion Gap 13 (5-15) Blood Urea Nitrogen 25 mg/dL (7-23) H Creatinine 0.7 mg/dL (0.5-0.9) Estimat Glomerular Filtration Rate mL/min (>60) Glucose Level 148 mg/dL (74-106) H Calcium Level 8.4 mg/dL (8.6-10.2) L Intake and Output 02/03/17 02/04/17 19:00 07:00 Intake Total 1015 ml 260 ml Balance 1015 ml 260 ml Intake Oral 960 ml IV Total 55 ml 260 ml # Voids 4 2 # Bowel Movements 2 Objective General Appearance: WD/WN, no apparent distress, alert EENT: PERRL/EOMI, normal ENT inspection Neck: non-tender, normal alignment, supple Cardiovascular: normal peripheral pulses, normal rate, regular rhythm, no gallop/murmur, no JVD Respiratory/Chest: respiratory distress, crackles/rales, rhonchi - bilaterally , expiratory wheezing Abdomen: normal bowel sounds, non tender, soft, no organomegaly, no mass Extremities: normal range of motion, non-tender 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 Continue levaquin and aztreonam. Continue IV solumedrol. (3) Leukocytosis Assessment & Plan: See ID note. Resolving on antibiotic. (4) Hypertension (5) Hypercholesteremia Status: progressing Assessment/Plan Discharge planning MADHURI RANDLE Feb 04, 2017 10:21
--- NOTE | 2017-02-04 19:37 | Pulmonology Progress Note ---
Assessment/Plan Problems: (1) sepsis (2) Hypoxia (3) Pneumonia (4) Purulent bronchitis (5) Cough Assessment/Plan improving respiratory treatment titrate fio2 check wbc continue abx dc steroids dc planning Subjective ROS Limited/Unobtainable: No Interval Events: less short of breath and cough Allergies: Coded Allergies: AZITHROMYCIN (Verified Adverse Reaction, 04/28/13) N#75. 2ND DAY OF ROCEPHIN AND AZITHROMYCIN (04/21/13). PATIENT DEVELOPED HIVES AFTER ROCEPHIN AND AZITHROMYCIN. CEFTRIAXONE SODIUM (Verified Adverse Reaction, 04/28/13) N#[id number]: 2ND DAY OF ROCEPHIN AND AZITHROMYHCIN (04/21/13). DEVELOPED HIVES AFTER ROCEPHIN AND AZITHROMYCIN. Objective Last 24 Hour Vital Signs Date Time Temp Pulse Resp B/P Pulse Ox O2 Delivery O2 Flow Rate FiO2 02/04/17 16:00 95.9 70 18 142/71 94 Room Air 02/04/17 13:37 72 18 99 Room Air 21 02/04/17 13:27 21 02/04/17 13:27 71 16 96 Room Air 21 02/04/17 11:40 96.6 66 20 131/79 98 Room Air 02/04/17 08:00 96.6 74 18 117/71 96 Room Air 02/04/17 07:34 74 18 99 Room Air 21 02/04/17 07:26 21 02/04/17 07:26 75 16 99 Room Air 21 02/04/17 04:00 97.7 65 20 152/75 Room Air 02/04/17 00:00 97.8 66 18 118/58 92 Room Air 02/03/17 20:10 68 18 99 Room Air 21 02/03/17 20:00 98.6 69 20 143/68 96 Room Air 02/03/17 20:00 21 02/03/17 19:59 72 16 97 Room Air 21 Intake and Output 02/03/17 02/04/17 19:00 07:00 Intake Total 1015 ml 260 ml Balance 1015 ml 260 ml Intake Oral 960 ml IV Total 55 ml 260 ml # Voids 4 2 # Bowel Movements 2 Objective General Appearance: WD/WN HEENT: normocephalic, atraumatic Respiratory/Chest: chest wall non-tender, lungs clear Cardiovascular: normal peripheral pulses, normal rate Abdomen: normal bowel sounds, soft, non tender, no organomegaly Extremities: no cyanosis, no clubbing Skin: no rash Laboratory Tests 02/04/17 05:50: White Blood Count 17.2H, Red Blood Count 3.73L, Hemoglobin 9.8L, Hematocrit 29.9L, Mean Corpuscular Volume 80, Mean Corpuscular Hemoglobin 26.2L, Mean Corpuscular Hemoglobin Concent 32.7, Red Cell Distribution Width 14.4, Platelet Count 240, Mean Platelet Volume 6.8, Neutrophils (%) (Auto) , Lymphocytes (%) ( Auto) , Monocytes (%) (Auto) , Eosinophils (%) (Auto) , Basophils (%) (Auto) , Differential Total Cells Counted 100, Neutrophils % (Manual) 91H, Lymphocytes % (Manual) 8L, Monocytes % (Manual) 1, Eosinophils % (Manual) 0, Basophils % ( Manual) 0, Band Neutrophils 0, Platelet Estimate Adequate, Platelet Morphology Normal, Hypochromasia 1+, Anisocytosis 1+, Sodium Level 138, Potassium Level 4.1 , Chloride Level 103, Carbon Dioxide Level 22, Anion Gap 13, Blood Urea Nitrogen 25H, Creatinine 0.7, Estimat Glomerular Filtration Rate , Glucose Level 148H, Calcium Level 8.4L Current Medications Medications (Trade) Dose Ordered Sig/Jess Route PRN Reason Start Time Stop Time Status Last Admin Dose Admin Acetaminophen (Tylenol) 650 mg Q4H PRN ORAL fever 01/31/17 20:15 03/02/17 20:14 Al Hydroxide/Mg Hydroxide (Mylanta II) 30 ml Q6H PRN ORAL dyspepsia 01/31/17 20:15 03/02/17 20:14 Albuterol/ Ipratropium (DuoNeb 0.5-3(2.5)mg/3ml) 3 ml EVERY 4 HOURS PRN HHN Shortness of Breath 02/03/17 11:45 02/08/17 23:59 Albuterol/ Ipratropium (DuoNeb 0.5-3(2.5)mg/3ml) 3 ml TIDRT HHN 02/02/17 13:00 02/07/17 12:59 02/04/17 13:27 Aztreonam 0.5 gm/ Dextrose 55 ml @ 110 mls/hr Q8HR IVPB 02/01/17 06:00 02/08/17 05:59 02/04/17 14:28 Gabapentin (Neurontin) 300 mg Q12HR ORAL 01/31/17 23:00 03/02/17 22:59 02/04/17 08:49 Guaifenesin/ Dextromethorphan (Robitussin DM) 10 ml Q4H PRN ORAL For Cough 02/03/17 16:15 03/05/17 16:14 Heparin Sodium (Porcine) (Heparin 5000 units/ml) 5,000 units EVERY 12 HOURS SUBQ 01/31/17 21:00 03/02/17 20:59 02/04/17 08:53 Levofloxacin (Levaquin 750mg/ D5W) 150 ml @ 100 mls/hr Q48H IVPB 02/02/17 00:00 02/09/17 00:00 02/04/17 00:12 Methylprednisolone Sodium Succinate (Solu-MEDROL) 40 mg EVERY 12 HOURS IVP 02/03/17 21:00 03/05/17 20:59 02/04/17 08:53 Nitroglycerin (Ntg) 0.4 mg Q5M PRN SL Prn Chest Pain 01/31/17 20:15 03/02/17 20:14 Ondansetron HCl (Zofran) 4 mg Q6H PRN IVP Nausea & Vomiting 01/31/17 20:15 03/02/17 20:14 Polyethylene Glycol (Miralax) 17 gm DAILYPRN PRN ORAL Constipation 01/31/17 20:15 03/02/17 20:14 Temazepam 15 mg 15 mg HSPRN PRN ORAL Insomnia 01/31/17 20:15 02/07/17 20:14 PAULA RAMIREZ Feb 04, 2017 19:37
[2017-02-05] VITALS: BP 133/64
[2017-02-05 04:00] VITALS: BP 120/62
[2017-02-05] MEDS: Aztreonam 0.5gm/D5W 55ml IVPB SCH ×2 (05:36)
[2017-02-05] MEDS: DuoNeb 0.5-3(2.5)mg/3ml neb HHN SCH ×2 (07:46→14:21)
[2017-02-05 08:13] VITALS: BP 126/68
[2017-02-05] MEDS: Heparin 5000 units/ml inj SUBQ SCH (09:11)
--- NOTE | 2017-02-05 10:06 | Infectious Diseases Prog Note ---
Assessment/Plan Assessment/Plan A: The patient is an 89-year-old female community-acquired pneumonia cough, sputum production improving Probably urinary tract infection. Rule out bacteremia. Leukocytosis. ( 2/2 steroids ) Legionella : neg Hypertension. Hyperlipidemia Appendectomy Abdominal hysterectomy PLAN: cont on aztreonam, and Levaquin d# 5 / , upon DC will cont w oral Levaquin only to complete the course ( Rx in chart ) Monitor CBC. Monitor BMP. Monitor cultures (blood) Monitor chest x-ray Subjective Allergies: Coded Allergies: AZITHROMYCIN (Verified Adverse Reaction, 04/28/13) N#[id number]. 2ND DAY OF ROCEPHIN AND AZITHROMYCIN (04/21/13). PATIENT DEVELOPED HIVES AFTER ROCEPHIN AND AZITHROMYCIN. CEFTRIAXONE SODIUM (Verified Adverse Reaction, 04/28/13) N#[id number]: 2ND DAY OF ROCEPHIN AND AZITHROMYHCIN (04/21/13). DEVELOPED HIVES AFTER ROCEPHIN AND AZITHROMYCIN. Subjective possible DC today Objective Vital Signs Last 24 Hour Vital Signs Date Time Temp Pulse Resp B/P Pulse Ox O2 Delivery O2 Flow Rate FiO2 02/05/17 08:13 97.9 76 15 126/68 96 Room Air 02/05/17 07:54 75 18 99 Room Air 02/05/17 07:40 72 18 99 Room Air 02/05/17 07:40 21 02/05/17 04:00 97.7 61 20 120/62 97 Room Air 02/05/17 00:00 97.9 64 18 133/64 94 Room Air 02/04/17 20:00 97.2 68 20 150/80 98 Room Air 02/04/17 19:55 70 18 99 Room Air 21 02/04/17 19:45 21 02/04/17 19:45 70 18 99 Room Air 02/04/17 19:41 98.2 68 18 139/77 98 Room Air 02/04/17 16:00 95.9 70 18 142/71 94 Room Air 02/04/17 13:37 72 18 99 Room Air 21 02/04/17 13:27 21 02/04/17 13:27 71 16 96 Room Air 02/04/17 11:40 96.6 66 20 131/79 98 Room Air Height (Feet): 5 Height (Inches): 3.00 Weight (Pounds): 161 HEENT: anicteric Respiratory/Chest: no respiratory distress Cardiovascular: no gallop/murmur Abdomen: non distended Current Medications Medications (Trade) Dose Ordered Sig/Jess Route PRN Reason Start Time Stop Time Status Last Admin Dose Admin Acetaminophen (Tylenol) 650 mg Q4H PRN ORAL fever 01/31/17 20:15 03/02/17 20:14 Al Hydroxide/Mg Hydroxide (Mylanta II) 30 ml Q6H PRN ORAL dyspepsia 01/31/17 20:15 03/02/17 20:14 Albuterol/ Ipratropium (DuoNeb 0.5-3(2.5)mg/3ml) 3 ml EVERY 4 HOURS PRN HHN Shortness of Breath 02/03/17 11:45 02/08/17 23:59 Albuterol/ Ipratropium (DuoNeb 0.5-3(2.5)mg/3ml) 3 ml TIDRT HHN 02/02/17 13:00 02/07/17 12:59 02/05/17 07:46 Aztreonam 0.5 gm/ Dextrose 55 ml @ 110 mls/hr Q8HR IVPB 02/01/17 06:00 02/08/17 05:59 02/05/17 05:36 Gabapentin (Neurontin) 300 mg Q12HR ORAL 01/31/17 23:00 03/02/17 22:59 02/05/17 09:08 Guaifenesin/ Dextromethorphan (Robitussin DM) 10 ml Q4H PRN ORAL For Cough 02/03/17 16:15 03/05/17 16:14 Heparin Sodium (Porcine) (Heparin 5000 units/ml) 5,000 units EVERY 12 HOURS SUBQ 01/31/17 21:00 03/02/17 20:59 02/05/17 09:11 Levofloxacin (Levaquin 750mg/ D5W) 150 ml @ 100 mls/hr Q48H IVPB 02/02/17 00:00 02/09/17 00:00 02/04/17 00:12 Nitroglycerin (Ntg) 0.4 mg Q5M PRN SL Prn Chest Pain 01/31/17 20:15 03/02/17 20:14 Ondansetron HCl (Zofran) 4 mg Q6H PRN IVP Nausea & Vomiting 01/31/17 20:15 03/02/17 20:14 Polyethylene Glycol (Miralax) 17 gm DAILYPRN PRN ORAL Constipation 01/31/17 20:15 03/02/17 20:14 Temazepam 15 mg 15 mg HSPRN PRN ORAL Insomnia 01/31/17 20:15 02/07/17 20:14 BERLIN AVILA M.D. Feb 05, 2017 10:06
[2017-02-05 11:37] VITALS: BP 130/79
[2017-02-05] MEDS ORDERED: LEVAQUIN500 MG ORAL (13:12)
[2017-02-05] MEDS ORDERED: NS 275ml ONE (15:18)
[2017-02-05] MEDS ORDERED: Tubing IV Secondary IV ONE (15:18)
--- NOTE | 2017-02-05 19:21 | Pulmonology Progress Note ---
Assessment/Plan Problems: (1) sepsis (2) Hypoxia (3) Pneumonia (4) Purulent bronchitis (5) Cough Assessment/Plan improving respiratory treatment titrate fio2 check wbc continue abx dc steroids dc planning for today no new cultures Subjective ROS Limited/Unobtainable: No Interval Events: no new complains, was seen earlier today Allergies: Coded Allergies: AZITHROMYCIN (Verified Adverse Reaction, 04/28/13) N#[id number]. 2ND DAY OF ROCEPHIN AND AZITHROMYCIN (04/21/13). PATIENT DEVELOPED HIVES AFTER ROCEPHIN AND AZITHROMYCIN. CEFTRIAXONE SODIUM (Verified Adverse Reaction, 04/28/13) N#[id number]: 2ND DAY OF ROCEPHIN AND AZITHROMYHCIN (04/21/13). DEVELOPED HIVES AFTER ROCEPHIN AND AZITHROMYCIN. Objective Last 24 Hour Vital Signs Date Time Temp Pulse Resp B/P Pulse Ox O2 Delivery O2 Flow Rate FiO2 02/05/17 14:24 73 18 99 Room Air 21 02/05/17 14:10 21 02/05/17 14:10 70 18 99 Room Air 21 02/05/17 11:37 97.5 59 14 130/79 97 Room Air 02/05/17 08:13 97.9 76 15 126/68 96 Room Air 02/05/17 07:54 75 18 99 Room Air 21 02/05/17 07:40 72 18 99 Room Air 21 02/05/17 07:40 21 02/05/17 04:00 97.7 61 20 120/62 97 Room Air 02/05/17 00:00 97.9 64 18 133/64 94 Room Air 02/04/17 20:00 97.2 68 20 150/80 98 Room Air 02/04/17 19:55 70 18 99 Room Air 21 02/04/17 19:45 21 02/04/17 19:45 70 18 99 Room Air 02/04/17 19:41 98.2 68 18 139/77 98 Room Air Intake and Output 02/04/17 02/05/17 19:00 07:00 Intake Total 1255 ml 55 ml Balance 1255 ml 55 ml Intake Oral 1200 ml IV Total 55 ml 55 ml # Voids 6 2 Objective General Appearance: WD/WN HEENT: normocephalic, atraumatic Respiratory/Chest: chest wall non-tender, lungs clear Cardiovascular: normal peripheral pulses, normal rate Abdomen: normal bowel sounds, soft, non tender, no organomegaly Extremities: no cyanosis, no clubbing Skin: no rash PAULA RAMIREZ Feb 05, 2017 19:21
--- NOTE | 2017-02-07 17:30 | Discharge Summary 2 SIG ---
DATE OF ADMISSION: 01/31/2017 DATE OF DISCHARGE: 02/05/2017 ATTENDING PHYSICIAN: Jesse Boykin M.D. CONSULTANTS: 1. Sheldon Howard M.D. 2. Braulio Soriano M.D. BRIEF HOSPITAL COURSE: The patient is an 89-year-old female, who presented with cough that began one week prior to admission. Cough was productive with yellowish phlegm. Denied fever or chills. She presented to [place] emergency room. On evaluation, chest x-ray showed a questionable infiltrate. Laboratories showed leukocytosis, WBC was elevated to 17. EKG showed no acute ischemic changes. She was admitted for pneumonia and was followed by Pulmonary and Infectious Disease specialist and was given aztreonam and Levaquin. Blood cultures did not isolate any growth. Urine culture showed mixed gram-positive organisms. She continued to have wheezing and was given IV Solu-Medrol and respiratory treatment, symptoms improved. Steroid was discontinued. The patient was discharged home to continue two more days of levofloxacin 500 mg daily. FINAL DIAGNOSES: 1. Community-acquired pneumonia. 2. Probable urinary tract infection. 3. Hypertension. 4. Hyperlipidemia. 5. Purulent acute bronchitis. 6. History of hypertension. 7. Bronchospasms. 8. Leukocytosis secondary to steroid use. Sheldon Howard M.D. I have been assigned to dictate discharge summary on this account and I was not involved in the patient's management. Andreea Mora N.P. DR: MIRIAN JOB#: [id number] CC:
== END 2017-02-05 15:19 | disposition home health service (06) | DRG 194 ==
LOC: EMR 17:05 → OBSVTOIN 18:18 → 4E 18:18 → EDBEDREQ 18:25 → 4E 21:52
DX: J18.9 Pneumonia, unspecified organism (principal); N39.0 Urinary tract infection, site not specified; I10 Essential (primary) hypertension; E78.5 Hyperlipidemia, unspecified; Z88.1 Allergy status to other antibiotic agents; J41.1 Mucopurulent chronic bronchitis; J20.9 Acute bronchitis, unspecified; D72.829 Elevated white blood cell count, unspecified; T38.0X5A Adverse effect of glucocorticoids and synthetic analogues, initial encounter
CPT/HCPCS: 36415; 71010; 80048; 80053; 80069; 81003; 82164; 82550; 82553; 83605; 83880; 84484; 85007; 85025; 87040; 87086; 92610; 93005; 94640; J7620